=== PATIENT | female | born 1950 | race Caucasian/White ===

== ENCOUNTER → 2017-06-22 | Outpatient (CLI) | payer MEDICARE, OTHER, SELFPAY | PROVIDERS: Visit Provider Physician Assistant | DX: E78.4 Other hyperlipidemia (principal); Z13.0 Encounter for screening for diseases of the blood and blood-forming organs and certain disorders involving the immune mechanism; Z13.21 Encounter for screening for nutritional disorder; Z13.29 Encounter for screening for other suspected endocrine disorder | CPT/HCPCS: 80053; 80061; 82607; 82746; 84439; 84443; 85025 ==

== ENCOUNTER 2017-07-13 10:33 | Emergency (ER) | payer MEDICARE, OTHER, SELFPAY ==
[2017-07-13 10:33] VITALS: BP 156/71; PULSE 69; RESP 20; TEMP 36.8; O2SAT 97; BMI 31.3
--- NOTE | 2017-07-13 11:01 | XR_ITS ---
XR chest portable HISTORY: ITS.REASON: anxiety with brief SOB ORDERING PHYSICIAN: Ilana Tarango MD PATIENT AGE: 66 years COMPARISON: [id number] FINDINGS: The cardiomediastinal silhouette and pulmonary vascularity are within normal limits. The lungs are clear without infiltrates, suspicious nodules, or pleural effusions. No acute bony abnormalities. IMPRESSION: Negative chest, no acute finding
--- NOTE | 2017-07-13 11:02 | HMH.EDGENADL ---
ED Disposition Clinical Impression: Anxiety Disposition: Home, Self-Care Condition on Discharge: Good Instructions: DI for Anxiety -- Adult Additional Instructions: Continue Vistaril as already prescribed; Continue Wellbutrin as just initiated and see Alessandra in one to three days for reassessment and further recommendations. Referrals: Alessandra Hernandez PA [Primary Care Provider] - - Critical Care Critical Care Time: No Attestation: On , the high probability of a clinically significant, sudden or life threatening deterioration of the following system(s) required my full and direct attention, intervention and personal management. The time I documented below is in addition to time spent performing reported procedures but includes the following listed in this critical care notation. Medical Decision Making Vital Signs: 07/13/17 10:33 07/13/17 12:01 Temperature 98.3 F Temperature Source Oral Pulse Rate [Right Brachial] 69 77 Respiratory Rate 20 18 Blood Pressure [Right Arm] 156/71 118/49 Blood Pressure Mean [Right Arm] 99 72 Blood Pressure Source [Right Arm] Automatic Cuff Automatic Cuff Blood Pressure Position [Right Arm] Sitting Sitting 02 Sat by Pulse Oximetry 97 97 Oxygen Delivery Method Room Air Room Air - Lab Data Lab Results 07/13/17 11:15: Urine Color Straw, Urine Appearance Clear, Urine pH 6.5, Ur Specific [place] <= 1.005, Urine Protein Negative, Urine Glucose (UA) Negative, Urine Ketones Negative, Urine Blood 1+, Urine Nitrate Negative, Urine Bilirubin Negative, Urine Urobilinogen 0.2, Ur Leukocyte Esterase 2+ A, Urine RBC 5-10, Urine WBC 10-20, Ur Squamous Epith Cells 5-10, Ur Renal Epithelial Cell 3-5, Urine Bacteria 1+ 07/13/17 : Troponin I < 0.02 Orders (Tests/Meds): ORDERS Category Date Time Status Urine Culture Stat Micro 07/13/17 11:15 Received - Radiology Data #1 Image(s): Chest Image Reviewed: Yes I reviewed the patient's radiology results, Yes I have reviewed radiologist's interpretation Preliminary Findings: Normal/NAD - ECG Data Tracing #1 I reviewed this ECG and interpreted as documented below: ECG initial impression date: 07/13/17 ECG initial impression time: 10:40 ECG normal with no acute: arrhythmias, ischemia, conduction abnormalities, chamber hypertrophy - Woodrow Inquiry Pt receiving controlled substance: No General Adult HPI - General Chief complaint: Dizziness Stated complaint: dizziness Time Seen by Provider: 07/13/17 10:40 Mode of Arrival: EMS Limitations: No Limitations Description of Symptoms (Recalled from ER Triage Doc. by RN): Pt reports increased dizziness and SOA today. - History of Present Illness HPI narrative: Patient has a history of chronic dizziness, for which she has been extensively evaluated in [facility], including head CT. Also has a history of EVENS, and is newly on Wellbutrin ?6 days, after seeing her PCP Alessandra and Dr. Larios's office last week. Had an episode of anxiety this morning where she felt short of breath, and was having some tingling to her face and hands as well as feet. This was self resolving. She did take some Vistaril early this morning. He has been on multiple medications in the past for this issue, including Paxil in the past, also reports that she has been seen by Dr. Duckworth in [facility] for a leaky heart valve . She states that I live on meclizine , for her dizziness. She is insistent that she does not have vertigo, however. She states that she has had some indigestion since last week. She has a vaginal yeast infection currently. States my urine stinks . No Fever or vomiting. No flu symptoms. Severity: similar to prior episodes - Related Data Home Medications Medication Instructions Recorded Confirmed aspirin 81 mg tablet,delayed 81 mg PO QDAY 07/07/17 07/13/17 release atorvastatin 10 mg tablet 10 mg PO QDAY 07/07/17 07/13/17 meclizine 25 mg tablet 25 mg PO TID tab 01
--- NOTE | 2017-07-13 11:06 | ED_ITS ---
ED Disposition Clinical Impression: Anxiety Disposition: Home, Self-Care Condition on Discharge: Good Instructions: DI for Anxiety -- Adult Additional Instructions: Continue Vistaril as already prescribed; Continue Wellbutrin as just initiated and see Alessandra in one to three days for reassessment and further recommendations. Referrals: Alessandra Hernandez PA [Primary Care Provider] - - Critical Care Critical Care Time: No Attestation: On , the high probability of a clinically significant, sudden or life threatening deterioration of the following system(s) required my full and direct attention, intervention and personal management. The time I documented below is in addition to time spent performing reported procedures but includes the following listed in this critical care notation. Medical Decision Making Vital Signs: 07/13/17 10:33 07/13/17 12:01 Temperature 98.3 F Temperature Source Oral Pulse Rate [Right Brachial] 69 77 Respiratory Rate 20 18 Blood Pressure [Right Arm] 156/71 118/49 Blood Pressure Mean [Right Arm] 99 72 Blood Pressure Source [Right Arm] Automatic Cuff Automatic Cuff Blood Pressure Position [Right Arm] Sitting Sitting 02 Sat by Pulse Oximetry 97 97 Oxygen Delivery Method Room Air Room Air - Lab Data Lab Results 07/13/17 11:15: Urine Color Straw, Urine Appearance Clear, Urine pH 6.5, Ur Specific [place] <= 1.005, Urine Protein Negative, Urine Glucose (UA) Negative, Urine Ketones Negative, Urine Blood 1+, Urine Nitrate Negative, Urine Bilirubin Negative, Urine Urobilinogen 0.2, Ur Leukocyte Esterase 2+ A, Urine RBC 5-10, Urine WBC 10-20, Ur Squamous Epith Cells 5-10, Ur Renal Epithelial Cell 3-5, Urine Bacteria 1+ 07/13/17 : Troponin I < 0.02 Orders (Tests/Meds): ORDERS Category Date Time Status Urine Culture Stat Micro 07/13/17 11:15 Received - Radiology Data #1 Image(s): Chest Image Reviewed: Yes I reviewed the patient's radiology results, Yes I have reviewed radiologist's interpretation Preliminary Findings: Normal/NAD - ECG Data Tracing #1 I reviewed this ECG and interpreted as documented below: ECG initial impression date: 07/13/17 ECG initial impression time: 10:40 ECG normal with no acute: arrhythmias, ischemia, conduction abnormalities, chamber hypertrophy - Woodrow Inquiry Pt receiving controlled substance: No General Adult HPI - General Chief complaint: Dizziness Stated complaint: dizziness Time Seen by Provider: 07/13/17 10:40 Mode of Arrival: EMS Limitations: No Limitations Description of Symptoms (Recalled from ER Triage Doc. by RN): Pt reports increased dizziness and SOA today. - History of Present Illness HPI narrative: Patient has a history of chronic dizziness, for which she has been extensively evaluated in [facility], including head CT. Also has a history of EVENS, and is newly on Wellbutrin ?6 days, after seeing her PCP Alessandra and Dr. Lariso's office last week. Had an episode of anxiety this morning where she felt short of breath, and was having some tingling to her face and hands as well as feet. This was self resolving. She did take some Vistaril early this morning. He has been on multiple medications in the past for this issue, including Paxil in the past, also reports that she has been seen by Dr. Duckworth in [facility] for a leaky heart valve . She states that I live on meclizine , for her dizziness
[2017-07-13 11:30] LABS: Appearance,Urine CLEAR (Clear); Bilirubin,Urine Negative (Negative); Blood, Urine 1+ (Negative); Color,Urine STRAW (Yellow); Glucose,Urine (UA) Negative (Negative); Ketones,Urine Negative (Negative); Leukocyte Esterase,Urine 2+ (Negative); Microscopic, Urine URINE MICROSCOPIC (MICROSCOPIC); Nitrate,Urine Negative (Negative); PH,Urine 6.5 (5.0-8.5); Protein,Urine Negative (Negative); Specific Gravity, Urine <= 1.005 (1.005-1.030); Urobilinogen,Urine 0.2 EU/dl (0.2)
[2017-07-13 12:01] VITALS: BP 118/49; PULSE 77; RESP 18; O2SAT 97
[2017-07-13 12:02] LABS: Troponin I < 0.02 ng/ml (0.00-0.06)
[2017-07-13 12:17] LABS: Bacteria,Urine 1+ /lpf
[2017-07-13 13:29] VITALS: BP 156/66; PULSE 70; O2SAT 98
== END 2017-07-13 13:32 | disposition home or self-care (01) ==
PROVIDERS: Emergency Provider Emergency Medicine; Family Provider Nurse Practitioner Family; PCP Physician Assistant
DX: F41.9 Anxiety disorder, unspecified (principal); R42 Dizziness and giddiness; Z79.899 Other long term (current) drug therapy; E78.5 Hyperlipidemia, unspecified; F17.210 Nicotine dependence, cigarettes, uncomplicated
CPT/HCPCS: 71045; 81001; 84484; 87086; 93005; 99284

== ENCOUNTER → 2018-03-27 09:44 | Outpatient (REF) | payer MEDICARE, OTHER, SELFPAY ==
[2018-03-27 15:33] LABS: Amphetamine/Metha Screen,Urine Negative ng/mL (<1000); Barbiturates Screen,Urine Negative ng/mL (<200); Benzodiazepines Screen,Urine Negative ng/mL (<200); Cannabinoid Screen,Urine Negative ng/mL (<50); Cocaine Screen,Urine Negative ng/mL (<300); Methadone Screen,Urine Negative ng/mL (<300); Opiate Screen,Urine Negative ng/mL (<300); Phencyclidine Screen,Urine Negative ng/mL (<25)
[2018-04-02 16:08] LABS: Alprazolam Negative (Cutoff=100); Benzodiazepines Negative ng/mL (Cutoff=100); Clonazepam Negative (Cutoff=100); Flurazepam Negative (Cutoff=100); Lorazepam Negative (Cutoff=100); Midazolam Negative (Cutoff=100); Temazepam Negative (Cutoff=100); Triazolam Negative (Cutoff=100)
== END ==
LOC: LAB 09:44
PROVIDERS: Visit Provider Emergency Medicine
DX: Z79.899 Other long term (current) drug therapy (principal)
CPT/HCPCS: 80305; 80346

== ENCOUNTER → 2018-06-23 14:20 | Outpatient (CLI) | payer MEDICARE, OTHER, SELFPAY ==
[2018-06-23 15:00] LABS: Basophils # 0.1 K/mm3 (0-0.2); Basophils % 0.7 % (0.1-2.0); Eosinophils # 0.2 K/mm3 (0.0-0.4); Eosinophils % 2.6 % (0.1-12.0); Hematocrit 49.7 % (37.0-47.0); Hemoglobin 16.3 g/dL (12.2-16.2); Lymphocytes # 1.8 K/mm3 (0.7-4.5); Lymphocytes % 25.6 % (10-50); Mean Corpuscular HGB Conc 32.7 g/dL (31.8-35.4); Mean Corpuscular Hemoglobin 31.2 pg (27.0-31.2); Mean Corpuscular Volume 95.3 fl (81-99); Mean Platelet Volume 8.2 fl (7.4-10.4); Monocytes # 0.4 K/mm3 (0.1-1.0); Monocytes % 6.2 % (1.7-9.3); Neutrophils # 4.4 K/mm3 (1.8-7.8); Neutrophils % 64.9 % (37.0-80.0); Platelet Count 237 K/mm3 (142-424); Red Blood Count 5.21 M/mm3 (4.20-5.40); Red Cell Distribution Width 13.4 % (11.5-17.5); White Blood Count 6.8 K/mm3 (4.8-10.8)
[2018-06-23 16:28] LABS: Alanine Aminotransferase 24 U/L (12-78); Albumin Level 3.6 gm/dL (3.4-5.0); Albumin/Globulin Ratio 1.1 (1.1-1.8); Alkaline Phosphatase 173 U/L (46-116); Anion Gap 15.7 mEq/L (5-15); Aspartate Amino Transferase 12 U/L (15-37); Bilirubin,Total 0.7 mg/dL (0.2-1.0); Blood Urea Nitrogen 14 mg/dL (7-18); Carbon Dioxide 25 mmol/L (21.0-32.0); Chloride 106 mmol/L (98-107); Chol/HDL Ratio 3.1 (1-3.5); Cholesterol 177 mg/dL (140-200); Estimated Glomerular Filt Rate 55 ml/min (>60); Free T4 (Free Thyroxine) 1.05 ng/dl (0.76-1.46); GFR (African American) 67 ML/MIN (>60); Globulin 3.3 gm/dl (1.3-3.2); Glucose 98 mg/dL (74-106); HDL Cholesterol 57 mg/dL (29-89); LDL Cholesterol 105 mg/dL (0-130); Potassium 4.7 mmoL/L (3.5-5.1); Sodium 142 mmol/L (136-145); Thyroid Stimulating Hormone 1.31 uIU/ml (0.358-3.740); Total Protein,Serum 6.9 gm/dL (6.4-8.2); Triglycerides 76 mg/dL (30-200); VLDL Cholesterol 15 mg/dL (0-40)
[2018-06-26 14:11] LABS: Vitamin D 25 Hydroxy 27.1 ng/mL (30.0-100.0)
== END ==
PROVIDERS: Visit Provider Emergency Medicine
DX: R53.83 Other fatigue (principal); Z79.899 Other long term (current) drug therapy
CPT/HCPCS: 80053; 80061; 82652; 84439; 84443; 85025

== ENCOUNTER → 2018-09-20 14:03 | Outpatient (CLI) | payer MEDICARE, OTHER, SELFPAY ==
[2018-09-20 15:19] LABS: Amphetamine/Metha Screen,Urine Negative ng/mL (<1000); Barbiturates Screen,Urine Negative ng/mL (<200); Benzodiazepines Screen,Urine Negative ng/mL (<200); Cannabinoid Screen,Urine Negative ng/mL (<50); Cocaine Screen,Urine Negative ng/mL (<300); Methadone Screen,Urine Negative ng/mL (<300); Opiate Screen,Urine Negative ng/mL (<300); Phencyclidine Screen,Urine Negative ng/mL (<25)
[2018-09-27 11:06] LABS: Alprazolam Negative; Benzodiazepines Positive; Flurazepam Negative; Lorazepam Negative
[2018-09-27 11:07] LABS: Clonazepam Positive; Midazolam Negative; Temazepam Negative; Triazolam Negative
== END ==
PROVIDERS: Visit Provider Emergency Medicine
DX: Z79.899 Other long term (current) drug therapy (principal)
CPT/HCPCS: 80305; 80346

== ENCOUNTER → 2018-10-20 08:59 | Outpatient (CLI) | payer MEDICARE, OTHER, SELFPAY ==
--- NOTE | 2018-10-20 10:00 | MM_ITS ---
MM Dig screening mamm BI w/CAD CAD Screening COMPARISON: None, patient had previous mammograms in [place] but does not know where INDICATION: There is no personal or family history of breast cancer TECHNIQUE: Standard CC and MLO images were obtained. R2 CAD reviewed. FINDINGS: The breasts are composed primarily of fat with minimal fibroglandular densities in the central portions of each breast. There are couple benign-appearing calcifications right breast and there is a mole marker left breast. There are small benign-appearing asymmetric density upper outer quadrant right breast. However since are no previous studies for comparison recommend patient return for 6 month follow-up mammogram right breast to evaluate for interval stability. There are no suspicious microcalcifications. IMPRESSION: Fibrofatty parenchyma with small benign-appearing asymmetric density right breast BI-RADS Category: 3 Probably Benign Finding Short Term Follow-up RECOMMENDED FOLLOW-UP: 6M - 6 MONTH FOLLOW-UP (A letter has been sent to the patient regarding results of the study.)
== END ==
PROVIDERS: PCP Emergency Medicine; Visit Provider Emergency Medicine
DX: Z12.31 Encounter for screening mammogram for malignant neoplasm of breast (principal)
CPT/HCPCS: 77067

== ENCOUNTER 2019-01-02 11:00 | Outpatient (RCR) | payer MEDICARE, OTHER, SELFPAY ==
--- NOTE | 2018-12-28 10:45 | HMH.PTOPEV ---
PT Outpatient Evaluation Rehab PT Outpatient Evaluation Start: 12/28/18 10:22 Freq: Status: Active Protocol: Document 12/28/18 10:26 RISA (Rec: 12/28/18 10:44 RISA [id number]) Electronically Signed By Sameer Dickson, PT 12/28/18 10:26 Outpatient Therapy Subjective History Subjective History This is the initial Physical therapy evaluation for Perla Medrano. Pt is a 68 y/o female referred to PT for c/o B knee/ quad tendon pain. Pt reports ~ 3 weeks ago she was at a friend's house and went down ~ 13-14 steps and her knees were cracking and popping . Pt reports she began having pain in L knee that day and her R knee a few days later. Pt reports pain in quad tendon upon rising from seated position. Pt also reports pain goes away after a few steps. Pt reports pain w/ ascending/descending stairs Chief Complaint Pain,Stiff Symptom Type Sharp Symptoms Relieved By Rest/Positioning,Ice Symptoms Aggravated By Standing Prior Functional Limitations None Current Functional Limitations Standing,Squatting,Stairs Symptom Description Intermittent Level of pain today (0-10) 0 Pain scale - at its best (0-10) 0 Pain scale - at its worst (0-10) 9 Hip/Knee Eval Gait Observation General Gait Pattern Observation No Deviations/Normal Assistive Device Assistive Devices None / NA Palpation Tenderness bilateral Knee Palpation Finding Tenderness Knee Palpation Overall Comment TTP at B quad tendon MMT Hip Abduction Strength Grade 4- Good- Hip External Rotation Strength Grade 4- Good- Hip Internal Rotation Strength Grade 4 Good Knee Extension Strength Grade 4- Good- Knee Flexion Strength Grade 4 Good ROM Hip ROM Reason Not Measured Within Functional Limits Knee ROM Reason Not Measured Within Functional Limits Special Tests Knee Apprehension Test Negative Left,Negative Right Knee Apley Compression Test Negative Left,Negative Right Knee Anterior Drawer Test Negative Left,Negative Right Knee Medial-Lateral Grind Test Negative Left,Negative Right Knee Anterior Nisa Test Negative Left,Negative Right Knee Valgus Stress Test Negative Left,Negative Right Knee Varus Stress Test Negative Left,Negative Right Knee Claudio Test Negative Left,Negative Right Outpatie
== END 2019-01-22 08:00 | disposition home or self-care (01) ==
LOC: PT.CARL 11:00
PROVIDERS: Visit Provider Emergency Medicine
DX: M25.562 Pain in left knee (principal); M25.561 Pain in right knee
CPT/HCPCS: 97110; 97163

== ENCOUNTER → 2021-08-10 10:45 | Outpatient (CLI) | payer MEDICARE, OTHER, SELFPAY ==
[2021-08-10 13:56] LABS: Ferritin 137 ng/ml (11.1-264)
== END ==
PROVIDERS: PCP Nurse Practitioner; Visit Provider Specialist
DX: R19.5 Other fecal abnormalities (principal)
CPT/HCPCS: 36415; 82728

== ENCOUNTER → 2021-08-14 07:55 | Outpatient (CLI) | payer MEDICARE, OTHER, SELFPAY ==
[2021-08-14 08:45] VITALS: PULSE 78; PULSE 79
== END ==
PROVIDERS: PCP Nurse Practitioner; Visit Provider Specialist
DX: R06.02 Shortness of breath (principal); Z72.0 Tobacco use
CPT/HCPCS: 94060; 94618; 94640; 94727; 94729; 94762

== ENCOUNTER → 2021-08-28 11:05 | Outpatient (CLI) | payer MEDICARE, OTHER, SELFPAY ==
--- NOTE | 2021-08-28 11:06 | MR_ITS ---
FINAL REPORT CLINICAL HISTORY: dizziness, imbalance, disequilibrium FINDINGS: Multi planar MR imaging was obtained through the brain without contrast. The midline structures appear intact. There is no evidence of Chiari malformation. On T2 and flair axial images there are tiny scattered foci of abnormal signal in the deep white matter which are nonspecific and favored to be related to chronic microvascular ischemia. On diffusion-weighted images there is no evidence of restricted diffusion. The visualized paranasal sinuses demonstrate normal signal voids. The seventh and eighth nerve root complexes are intact. IMPRESSION: Some minimal changes of chronic microvascular ischemia. Reviewed, Interpreted and Dictated by Blayne Rico MD Transcribed by Afshan Crabtree Authenticated by Blayne Rico MD on 08/28/2021 01:35:07 [facility]
== END ==
PROVIDERS: PCP Nurse Practitioner; Visit Provider Specialist
DX: G25.9 Extrapyramidal and movement disorder, unspecified (principal); R42 Dizziness and giddiness
CPT/HCPCS: 70551

== ENCOUNTER → 2022-03-17 12:50 | Outpatient (CLI) | payer MEDICARE, OTHER, SELFPAY ==
--- NOTE | 2022-03-17 13:02 | ECG_ITS ---
APPROVED REPORT Exam: Resting ECG HR:63 bpm ECG Measurements Heart Rate 63 AXES VA 143 P 22 QRSd 92 QRS 42 QT 387 T 49 QTc 395 Conclusion SINUS RHYTHM NORMAL ECG UNCONFIRMED REPORT Electronically signed by : Waldo Dangelo MD 03/17/2022 17:36:27
== END ==
PROVIDERS: PCP Nurse Practitioner; Visit Provider Specialist
DX: R42 Dizziness and giddiness (principal)
CPT/HCPCS: 93005

== ENCOUNTER → 2022-07-16 13:51 | Outpatient (CLI) | payer MEDICARE, OTHER, SELFPAY ==
--- NOTE | 2022-07-16 13:59 | US_ITS ---
FINAL REPORT TECHNIQUE: Ultrasound images of the thyroid were obtained. CLINICAL HISTORY: SINGLE THYROID NODULE FINDINGS: The right lobe of the thyroid measures 5 x 1 x 2 cm. The left lobe of the thyroid measures 4 x 1 x 1 cm. Isthmus measures 0.26 cm. Two nodules are seen in the right lobe 1 measuring 4 x 4 x 2 cm which is solid and hypoechoic, TI-RADS category 4. The 2nd measures 5 x 4 x 2 cm, is cystic and TI-RADS category 1. There are 2 nodules in the left lobe of the thyroid. The 1st nodule measures 5 x 4 x 3 cm, is cystic and TI-RADS category 1. The 2nd nodule is 3 x 2 x 3 cm, is also cystic and TI-RADS category 1. IMPRESSION: Small, bilateral thyroid nodules. No additional follow-up needed. Reviewed, Interpreted and Dictated by Champ Arriola III, MD Transcribed by Juany Jackson Authenticated and . [facility]
== END ==
PROVIDERS: PCP Specialist; Visit Provider Nurse Practitioner
DX: E04.1 Nontoxic single thyroid nodule (principal)
CPT/HCPCS: 76536

== ENCOUNTER → 2022-08-31 13:19 | Outpatient (CLI) | payer MEDICARE, OTHER, SELFPAY ==
--- NOTE | 2022-08-31 13:26 | XR_ITS ---
FINAL REPORT CLINICAL HISTORY: Dyspnea COMPARISON: 07/13/2017 FINDINGS: PA and lateral views of the chest were obtained. The cardiac and mediastinal silhouettes are within normal limits. The lungs are hyperinflated and clear. There is no pleural effusion or pneumothorax. No acute osseous abnormality is identified. IMPRESSION: Hyperinflation with no radiographic evidence of acute cardiac or pulmonary disease. Reviewed, Interpreted and Dictated by Bri Owusu MD Transcribed by Juju Garsia Authenticated and [facility]
== END ==
PROVIDERS: PCP Nurse Practitioner; Visit Provider Specialist
DX: R06.00 Dyspnea, unspecified (principal); R06.89 Other abnormalities of breathing
CPT/HCPCS: 71046; 94762

== ENCOUNTER → 2022-09-02 13:03 | Outpatient (CLI) | payer MEDICARE, OTHER, SELFPAY | PROVIDERS: PCP Nurse Practitioner; Visit Provider Specialist | DX: R06.00 Dyspnea, unspecified (principal); R06.89 Other abnormalities of breathing; G25.9 Extrapyramidal and movement disorder, unspecified; F17.200 Nicotine dependence, unspecified, uncomplicated | CPT/HCPCS: 94060; 94640; 94726; 94729 ==

== ENCOUNTER → 2023-05-31 08:10 | Outpatient (CLI) | payer MEDICARE, OTHER, SELFPAY ==
[2023-05-31 13:37] LABS: Barbiturates Screen,Urine Negative ng/ml (<200); Benzodiazepines Screen,Urine Negative ng/ml (<200)
[2023-05-31 13:38] LABS: Amphetamine/Metha Screen,Urine Negative ng/ml (<1000); Methadone Screen,Urine Negative ng/ml (<300)
[2023-05-31 13:39] LABS: Cannabinoid Screen,Urine Negative ng/ml (<50)
[2023-05-31 13:40] LABS: Cocaine Screen,Urine Negative ng/ml (<300); Opiate Screen,Urine Negative ng/ml (<300)
[2023-05-31 13:41] LABS: Phencyclidine Screen,Urine Negative ng/ml (<25)
== END ==
PROVIDERS: PCP Physician Assistant; Visit Provider Nurse Practitioner Psychiatric/Mental Health
DX: Z79.899 Other long term (current) drug therapy (principal); Z51.81 Encounter for therapeutic drug level monitoring
CPT/HCPCS: 80305

== ENCOUNTER 2023-12-12 10:32 | Outpatient (CLI) | payer MEDICARE, OTHER, SELFPAY ==
[2023-12-12 18:41] LABS: Basophils # 0.1 K/mm3 (0-0.2); Basophils % 0.9 % (0.1-2.0); Eosinophils # 0.3 K/mm3 (0.0-0.4); Hematocrit 47.4 % (37.0-47.0); Hemoglobin 14.9 g/dL (12.2-16.2); Lymphocytes # 2.1 K/mm3 (0.7-4.5); Lymphocytes % 24.7 % (10-50); Mean Corpuscular HGB Conc 31.4 g/dL (31.8-35.4); Mean Corpuscular Hemoglobin 30.6 pg (27.0-31.2); Mean Corpuscular Volume 97.4 fl (81-99); Mean Platelet Volume 9.1 fl (7.4-10.4); Monocytes # 0.5 K/mm3 (0.1-1.0); Monocytes % 6.2 % (1.7-9.3); Neutrophils # 5.6 K/mm3 (1.8-7.8); Neutrophils % 65.1 % (37.0-80.0); Platelet Count 193 K/mm3 (142-424); Red Blood Count 4.86 M/mm3 (4.20-5.40); Red Cell Distribution Width 14.4 % (11.5-17.5); White Blood Count 8.6 K/mm3 (4.8-10.8)
[2023-12-12 19:12] LABS: Alanine Aminotransferase 17 U/L (12-78); Albumin Level 3.7 g/dl (3.5-5.0); Albumin/Globulin Ratio 1.5 (1.1-1.8); Alkaline Phosphatase 144 U/L (38-126); Anion Gap 14.5 mEq/L (5-15); Aspartate Amino Transferase 22 U/L (14-36); Bilirubin,Total 0.7 mg/dl (0.2-1.3); Blood Urea Nitrogen 20 mg/dl (7-17); Calcium 9.4 mg/dl (8.4-10.2); Carbon Dioxide 24 mmol/L (22.0-30.0); Chloride 107 mmol/L (98-107); Chol/HDL Ratio 3.2 (1-3.5); Cholesterol 181 mg/dl (140-200); Estimated Glomerular Filt Rate 40 ml/min (>60); GFR (African American) 49 ML/MIN (>60); Globulin 2.5 g/dL (1.3-3.2); Glucose 91 mg/dl (74-100); HDL Cholesterol 57 mg/dl (40-60); Potassium 4.5 mmoL/L (3.5-5.1); Sodium 141 mmol/L (136-145); Total Protein,Serum 6.2 g/dl (6.3-8.2); Triglycerides 76 mg/dl (30-150); VLDL Cholesterol 15 mg/dL (0-40)
[2023-12-12 19:23] LABS: Direct LDL Cholesterol 98.52 mg/dL (100-129)
[2023-12-12 19:29] LABS: 25-OH Vitamin D, Total 26.5 ng/mL (30-100)
[2023-12-12 19:41] LABS: Hemoglobin A1C 5.3 % (4.0-6.0)
[2023-12-12 19:43] LABS: Thyroid Stimulating Hormone 1.17 uIU/mL (0.465-4.68)
== END 2023-12-12 23:59 | disposition home or self-care (01) ==
LOC: LAB.DROPOF 12-13 10:34
PROVIDERS: PCP Physician Assistant; Visit Provider Physician Assistant
DX: E55.9 Vitamin D deficiency, unspecified (principal); E66.9 Obesity, unspecified; E78.5 Hyperlipidemia, unspecified; R53.83 Other fatigue; R73.03 Prediabetes; Z68.31 Body mass index [BMI] 31.0-31.9, adult
CPT/HCPCS: 80053; 80061; 82306; 83036; 84443; 85025

== ENCOUNTER 2024-01-10 15:10 | Outpatient (CLI) | payer MEDICARE, OTHER, SELFPAY ==
[2024-01-10 15:58] LABS: Basophils # 0.1 K/mm3 (0-0.2); Basophils % 0.9 % (0.1-2.0); Eosinophils # 0.3 K/mm3 (0.0-0.4); Eosinophils % 3.4 % (0.1-12.0); Hematocrit 44.2 % (37.0-47.0); Hemoglobin 14.6 g/dL (12.2-16.2); Lymphocytes # 2.7 K/mm3 (0.7-4.5); Lymphocytes % 31.1 % (10-50); Mean Corpuscular HGB Conc 33.1 g/dL (31.8-35.4); Mean Corpuscular Hemoglobin 31.8 pg (27.0-31.2); Mean Platelet Volume 8.6 fl (7.4-10.4); Monocytes # 0.5 K/mm3 (0.1-1.0); Neutrophils # 5.2 K/mm3 (1.8-7.8); Neutrophils % 58.5 % (37.0-80.0); Platelet Count 240 K/mm3 (142-424); Red Cell Distribution Width 14.3 % (11.5-17.5); White Blood Count 8.8 K/mm3 (4.8-10.8)
[2024-01-10 16:10] LABS: Chloride 110 mmol/L (98-107); Potassium 4.7 mmoL/L (3.5-5.1); Sodium 140 mmol/L (136-145)
[2024-01-10 16:12] LABS: Alanine Aminotransferase 17 U/L (12-78); Albumin Level 3.8 g/dl (3.5-5.0); Albumin/Globulin Ratio 1.6 (1.1-1.8); Alkaline Phosphatase 127 U/L (38-126); Anion Gap 10.7 mEq/L (5-15); Aspartate Amino Transferase 24 U/L (14-36); Bilirubin,Total 0.7 mg/dl (0.2-1.3); Blood Urea Nitrogen 25 mg/dl (7-17); Carbon Dioxide 24 mmol/L (22.0-30.0); Estimated Glomerular Filt Rate 37 ml/min (>60); GFR (African American) 45 ML/MIN (>60); Globulin 2.4 g/dL (1.3-3.2); Total Protein,Serum 6.2 g/dl (6.3-8.2)
[2024-01-10 16:13] LABS: Calcium 9.5 mg/dl (8.4-10.2); Cholesterol 197 mg/dl (140-200); Glucose 95 mg/dl (74-100); HDL Cholesterol 65 mg/dl (40-60); Triglycerides 75 mg/dl (30-150); VLDL Cholesterol 15 mg/dL (0-40)
[2024-01-10 16:24] LABS: Direct LDL Cholesterol 96.71 mg/dL (100-129)
[2024-01-10 16:42] LABS: Thyroid Stimulating Hormone 1.16 uIU/mL (0.465-4.68)
[2024-01-10 18:35] LABS: Vitamin B12 579 pg/mL (239-931)
== END 2024-01-10 23:59 | disposition home or self-care (01) ==
LOC: LAB 15:13
PROVIDERS: PCP Physician Assistant; Visit Provider Physician Assistant
DX: R53.83 Other fatigue (principal); E78.5 Hyperlipidemia, unspecified; T43.505A Adverse effect of unspecified antipsychotics and neuroleptics, initial encounter; G24.01 Drug induced subacute dyskinesia; G25.9 Extrapyramidal and movement disorder, unspecified; Z68.31 Body mass index [BMI] 31.0-31.9, adult; E66.9 Obesity, unspecified
CPT/HCPCS: 80053; 80061; 82607; 84443; 85025

== ENCOUNTER 2024-04-16 08:39 | Outpatient (CLI) | payer MEDICARE, OTHER, SELFPAY ==
[2024-04-16 09:29] LABS: Basophils # 0.1 K/mm3 (0-0.2); Basophils % 0.9 % (0.1-2.0); Eosinophils # 0.3 K/mm3 (0.0-0.4); Hemoglobin 14.7 g/dL (12.2-16.2); Lymphocytes # 2.2 K/mm3 (0.7-4.5); Lymphocytes % 23.4 % (10-50); Mean Corpuscular HGB Conc 33.5 g/dL (31.8-35.4); Mean Corpuscular Hemoglobin 31.4 pg (27.0-31.2); Mean Corpuscular Volume 93.7 fl (81-99); Monocytes # 0.8 K/mm3 (0.1-1.0); Monocytes % 8.1 % (1.7-9.3); Neutrophils % 64.6 % (37.0-80.0); Platelet Count 218 K/mm3 (142-424); Red Cell Distribution Width 13.7 % (11.5-17.5); White Blood Count 9.3 K/mm3 (4.8-10.8)
[2024-04-16 09:45] LABS: Albumin Level 3.7 g/dl (3.5-5.0); Chloride 110 mmol/L (98-107); Sodium 139 mmol/L (136-145)
[2024-04-16 09:46] LABS: Potassium 4.2 mmoL/L (3.5-5.1)
[2024-04-16 09:48] LABS: Alanine Aminotransferase 21 U/L (12-78); Albumin/Globulin Ratio 1.7 (1.1-1.8); Alkaline Phosphatase 124 U/L (38-126); Anion Gap 6.2 mEq/L (5-15); Aspartate Amino Transferase 26 U/L (14-36); Bilirubin,Total 0.8 mg/dl (0.2-1.3); Blood Urea Nitrogen 19 mg/dl (7-17); Calcium 9.6 mg/dl (8.4-10.2); Carbon Dioxide 27 mmol/L (22.0-30.0); Cholesterol 179 mg/dl (140-200); Estimated Glomerular Filt Rate 44 ml/min (>60); GFR (African American) 53 ML/MIN (>60); Globulin 2.2 g/dL (1.3-3.2); Glucose 98 mg/dl (74-100); Total Protein,Serum 5.9 g/dl (6.3-8.2); Triglycerides 108 mg/dl (30-150); VLDL Cholesterol 22 mg/dL (0-40)
[2024-04-16 09:49] LABS: Chol/HDL Ratio 3.7 (1-3.5); HDL Cholesterol 49 mg/dl (40-60)
[2024-04-16 10:00] LABS: Direct LDL Cholesterol 91.77 mg/dL (100-129)
== END 2024-04-16 23:59 | disposition home or self-care (01) ==
LOC: LAB 08:41
PROVIDERS: PCP Physician Assistant; Visit Provider Nurse Practitioner Family
DX: I25.10 Atherosclerotic heart disease of native coronary artery without angina pectoris (principal); I10 Essential (primary) hypertension
CPT/HCPCS: 36415; 80053; 80061; 83735; 85025

== ENCOUNTER 2024-07-05 11:55 | Outpatient (CLI) | payer MEDICARE, OTHER, SELFPAY ==
--- NOTE | 2024-07-05 11:57 | CT_ITS ---
FINAL REPORT TECHNIQUE: Thin section axial images were obtained through the lungs using a low-dose technique per lung cancer screening protocol. Reconstruction images were obtained using the axial data. Exam was performed using dose reduction technique. CLINICAL HISTORY: lung cancer screening CURRENT SMOKER, 1 PPD X 15 YEARS COMPARISON: None FINDINGS: CTDLvol: 2.9 DLP: 105.25 73-year-old female, current smoker 15 pack year history Lungs: No acute pulmonary abnormality. There is asymmetric nodular pleural thickening present in the right apex. This is favored to represent scar, although with no prior examinations an underlying nodule is not entirely excluded. The lungs are otherwise clear. Lymph nodes: No thoracic lymphadenopathy. Mediastinum: Heart size is normal. Prominent coronary artery calcifications are present. Pleura/pericardium: No pleural or pericardial effusion. Other: There is a left renal lesion present, which is indeterminate. IMPRESSION: Asymmetric nodular pleural thickening in the right apex, favored to be scar but a nodule is not entirely excluded. Lung RADS: 0S, the S designation for prominent coronary artery calcifications. Recommendation: Follow-up 3 to 6-month CT to reevaluate the asymmetric nodular pleural thickening in the right apex. Reviewed, Interpreted and Dictated by Bri Owusu MD Transcribed by Rose Juarez Authenticated and [facility]
== END 2024-07-05 23:59 | disposition home or self-care (01) ==
LOC: RAD 11:57
PROVIDERS: PCP Internal Medicine; Visit Provider Internal Medicine
DX: F17.210 Nicotine dependence, cigarettes, uncomplicated (principal); Z12.2 Encounter for screening for malignant neoplasm of respiratory organs
CPT/HCPCS: 71271

== ENCOUNTER 2024-07-17 10:53 | Outpatient (RCR) | payer MEDICARE, OTHER, SELFPAY ==
--- NOTE | 2024-07-17 12:29 | HMH.PTOPEV ---
PT Outpatient Evaluation Rehab PT Outpatient Evaluation Start: 07/17/24 11:04 Freq: Status: Active Protocol: Document 07/17/24 11:05 ALEXANDRA (Rec: 07/17/24 12:28 PDESEROUX [id number]) E-signed By Terrance Jimenez, PT Outpatient Therapy Subjective History Subjective History Pt. is a 73 year old female who presents to [facility] Out[facility] in [place] for the initial evaluation this date(07/17/24) w/ c/o chronic and constant BLE/BUE(L>R) P!, weakness, and tremors since the summer that has progressively been getting worse. Pt. vocalized putting on 50# of body weight secondary to increased sedentary lifestyle. Pt. reports the added weight has increased popping and P! in the RLE when she moves it. Pt.'s c/o weakness, shaking of extremities, and P! onset in summer 2023 was secondary to taking an anti-depressant medication. Pt. reports some improvements symptom complaint since she was instructed per DM to discontinue medications. However, pt. vocalized worsening of activity level since onset. Pt. reports she has help from a family member she lives with to assist pt. w / standing from a chair or commode at home. Pt. also reports having assistance w/ negotiating their 13 steps at home. Pt. reports she is unable to stand long enough to fix supper, or dress herself, therefore, requires assistance w/ ADLs. Pt. reports she's had 5 falls since symptom onset in and outside of her home environment. Pt. RTMD 07/19/24 . Current medication list includes Clonidine, Lisinopril , and Atorvastatin. PMH includes Hypertension, Hyperlipidemia, and surgical procedure for skin cancer BLEs (unable to recall specific type of skin cancer). New diagnosis of cancer in past 12 Yes: Pt. reports having a months? surgical procedure to remove skin cancer BLEs in 2023. Chief Complaint Pain,Stiff,Swelling,Catches/ Locks,Gives out/Unstable, Paresthesia,Weakness,Decreased Coordination Symptom Type Ache,Throb,Sharp,Burning, Numbness,Tingling,Shooting Symptoms Relieved By Rest/Positioning,Prescription Meds Symptoms Aggravated By Standing,Bending/Stooping, Physical Activity,Walking, Lifting Prior Functional Limitations None Current Functional Limitations Lifting,Housework,Dressing, Standing,Squatting,Recreation Activity,Walking,Stairs, Bending/Stooping Symptom Description Constant and Continuous, Activity Dependent Level of pain today (0-10) 3 Pain scale - at its best (0-10) 2 Pain scale - at its worst (0-10) 7 Hip/Knee Eval Gait Observation General Gait Pattern Observation Antalgic Gait,Decrease Weight Bear (R),Decrease Stride Lngth (L) Assistive Device Assistive Devices None / NA Palpation Tenderness right Knee Palpation Finding Tenderness Knee Palpation Overall Comment grade 3 +TTP to medial/lateral jt. line and quadriceps tendon MMT left Hip Flexion Strength Grade 3+ Fair+ Hip Abduction Strength Grade 4- Good- Hip Adduction Strength Grade 4- Good- Hip Extension Strength Grade 4- Good- Gluteus Wally Strength Grade 4- Good- Hip External Rotation Strength Grade 4- Good- Hip Internal Rotation Strength Grade 4- Good- Knee Extension Strength Grade 4- Good- Knee Flexion Strength Grade 4- Good- Knee Extensors Muscle Tone Description Severe Hypertonicity Knee Flexors Muscle Tone Description Severe Hypertonicity right Hip Flexion Strength Grade 3 Fair Hip Abduction Strength Grade 3+ Fair+ Hip Adduction Strength Grade 3+ Fair+ Hip Extension Strength Grade 4- Good- Gluteus Wally Strength Grade 4- Good- Hip External Rotation Strength Grade 3+ Fair+ Hip Internal Rotation Strength Grade 3+ Fair+ Knee Extension Strength Grade 4- Good- Knee Flexion Strength Grade 4- Good- Knee Extensors Muscle Tone Description Severe Hypertonicity Knee Flexors Muscle Tone Description Severe Hypertonicity ROM Knee Extension Active Range of Motion ( +6 degrees) Knee Extension Passive Range of Motion ( +2 degrees) Knee Flexion Active Range of Motion ( 92 degrees) Knee Flexion Passive Range of Motion ( 101 degrees) Knee ROM Limitations Soft Tissue Tightness,Muscle Weakness,Muscle Tone,Pain DTR bilateral Rt Patellar 2+ Lt Patellar 2+ Rt Ankle 0 Lt Ankle 0 Sensation LE Dermatome Level L1,L2,L3,L4,L5,S1 Comment light touch sensation vocalized symmetrical in BLEs in above patterns Special Tests Knee Medial-Lateral Grind Test Positive Right Knee Valgus Stress Test Negative Right Knee Varus Stress Test Negative Right Knee Claudio Test Positive Right Outpatient Therapy Assessment Impairments Problems/Impairmments Palpation Tenderness,Impaired Range of Motion,Impaired Strength,Impaired Endurance, Impaired Transfers,Impaired Gait Pattern,Impaired Walking, Impaired Standing,Impaired Lifting,Impaired Dressing, Impaired Household Care, Impaired Stair Climbing, Increased Edema,Subjective C/O Pain,Impaired Self Care/Self Management Prognosis Rehab Potential Good Comment w/ HEP compliancy Clinical Impression Consistent with Diagnosis Yes Consistent with weakness of B/L lower extremities Additional details: symptoms and signs involving the musculoskeletal system Short Term Goals Number of Weeks 2 Decreased Palpation Tenderness Yes: grade 1-2 +TTP to TTP assessment above Decrease Subjective C/O Pain Yes: worse:11/10 Patient to be Ind w/ HEP Yes Assisted Goals Number of Weeks 4-6 Decreased Palpation Tenderness Yes: grade 1 +TTP to TTP assessment above Increase Range of Motion Yes: RLE knee A/PROM:0-120 Increase Strength Yes: 4+ to 5/5 BLE MMT scores grossly Improve Transfers Yes: Pt. will be able to stand from a seated position IND. SPV. Increase Ability to Walk Yes: Pt. will be able to ambulate SPV w/o AD from room to room w/o difficulty Increase Ability to Stand Yes: Pt. will be able to stand 5' SPV for improved ability to fix supper Increase Ability to Drive/Ride in Car Yes: Pt. will be able to transfer self IND. into/out vehicle w/o difficulty Improve Ability to Dress Self Yes: Pt. will be able to don socks and yoga pants IND. w/o difficulty Improve Ability to Climb Stairs Yes: Pt. will be able to negotiate stairs w/ handrail SPV. Improve LEFI Score Yes Decrease Subjective C/O Pain Yes: worse;2-09/10 Patient to be Ind w/ Advanced HEP Yes Outpatient Therapy Plan of Care Treatment Plan May Include Therapeutic Exercise Including Home Yes Exercise Program Manual Therapy Techniques Yes Neuromuscular Re-education Yes Therapeutic Activities to Return to Yes Previous Functional/Work Level Gait Training Yes ADL/Self Care Education Yes Vasopneumatic Compression Pump Yes Eval/Re-Eval Yes Frequency Times per week 2 Duration Number of Weeks 4-6 Addendums This patient is a candidate for social No or vocational rehab? Patient/Guardian verbally acknowledges Yes understanding of treatment program and consents to further treatment? Patient/Guardian verbally acknowledges Yes understanding of diagnosis, prognosis and goals for treatment? Eval Complexity PT Charges 69178 - Moderate Complexity Shoulder/Elbow Eval Shoulder Objective Measurements Elbow Objective Measurements PHYSICIAN CERTIFICATION: I certify the specified therapy services for Perla Carolyn Marcela are required, authorized, and reviewed every 30 days.
== END 2024-07-17 23:59 | disposition home or self-care (01) ==
LOC: PT 10:53
PROVIDERS: Visit Provider Internal Medicine
DX: R53.1 Weakness (principal); R29.818 Other symptoms and signs involving the nervous system
CPT/HCPCS: 97110; 97163

== ENCOUNTER 2024-08-09 14:06 | Outpatient (CLI) | payer MEDICARE, OTHER, SELFPAY ==
--- NOTE | 2024-08-09 14:27 | MR_ITS ---
FINAL REPORT CLINICAL HISTORY: Tremors, tardive dyskinesia X 6 MONTHS BILATERAL HANDS AND LEFT LEG COMPARISON: 08/28/2021 FINDINGS: Multi planar MR imaging was obtained through the brain without contrast. There are a few small scattered foci of increased signal in the deep white matter, also seen on the prior MRI of 2021, and consistent with minimal changes of ischemic microvascular disease. The midline structures appear intact. There is no evidence of Chiari malformation. On T2 and flair axial images the brain parenchyma is homogeneous. On diffusion-weighted images there is no evidence of restricted diffusion. The visualized paranasal sinuses demonstrate normal signal voids. The seventh and eighth nerve root complexes are intact. IMPRESSION: Minimal changes of ischemia microvascular disease, stable since the prior MR of 2021, otherwise unremarkable MRI of the head without contrast. Reviewed, Interpreted and Dictated by Blayne Rico MD Transcribed by Rose Juarez Authenticated and [facility] [place]
[2024-08-09 14:42] LABS: Blood Urea Nitrogen 17 mg/dl (7-17); Estimated Glomerular Filt Rate 54 ml/min (>60); GFR (African American) 66 ML/MIN (>60)
== END 2024-08-09 23:59 | disposition home or self-care (01) ==
LOC: RAD 14:07
PROVIDERS: PCP Internal Medicine; Visit Provider Internal Medicine
DX: G24.01 Drug induced subacute dyskinesia (principal)
CPT/HCPCS: 36415; 70551; 82565; 84520

== ENCOUNTER 2025-01-17 11:38 | Outpatient (CLI) | payer MEDICARE, OTHER, SELFPAY ==
--- OUTSIDE RECORDS SUMMARY | 2025-01-17 11:41 | XMS_ITS | Encounter Summary ---
Author Organization [employer] (formerly [employer] ([place], [place], [place], [place]) Address [address] [place] [address] Care Team Providers Care Trash Collector Supervisor Name Role Phone Unavailable Primary Care Provider Unavailabl e Encounter Details Date Type Department Care Team (Late st Contact Info) Description 07/16/2021 Transcribed Document [facility] [place] [address] [place] [address] ProviderMckenzie MD [address] [place] [address] Social History Tobacco Use Types Packs/Day Years Used Date Smoking Tobacco: Never Assessed Comments Unknown Sex and Gender Information Value Date Recorded Sex Assigned at Not on file Legal Sex Female 5:34 PM CDT Gender Identity Not on file Sexual Orientation Not on file documented as of this encounter Miscellaneous Notes * Cerner Conversion Note - Mckenzie Leija MD - 07/16/2021 3:22 PM DOWEL STICKER OPERATOR DATE OF SERVICE: 07/16/2021 LEFT HEART CATHETERIZATION REPORT INDICATION: Dyspnea equivalent angina anterior ischemia by Lexiscan Cardiolite perfusion study. ADDITIONAL REFERRING PHYSICIAN: [facility]. PROCEDURE: Standard left heart catheterization. TECHNIQUE: A 5/6-Tajik sheath was placed in the right radial artery. Reynaldo catheter was used for selective angiography of left and right coronary arteries and obtaining pressures in the left ventricle. Left ventriculogram was not performed. Following the diagnostic catheterization, the radial artery sheath was removed and the access site successfully compressed using a TR band. No complications. HEMODYNAMICS: Left ventricle 130/10 mmHg, aorta 130/70 mmHg. DIAGNOSES: 1. Mild coronary artery atherosclerosis. 2. Normal left ventricular filling pressure without gradient across the aortic valve. CORONARY ANATOMY: 1. Left main trunk: Short left main trunk. 2. LAD: Large caliber vessel, which gives rise to several small caliber diagonal branches before extending beyond the apex. Mild calcification present in the proximal LAD. Luminal irregularities present in the LAD and diagonal branches. 3. Circumflex artery: Large caliber vessel, which gives rise to a tiny high lateral branch, large caliber bifurcating lateral branch and a small caliber AV circumflex artery. Luminal irregularities present in the circumflex artery. 4. Right coronary artery: Dominant large caliber vessel, which gives rise to a small caliber posterior descending artery, small caliber posterolateral branch. Mild atherosclerosis present in the right coronary artery. Mild calcification present in the proximal right coronary artery. 5. Left ventricle: Normal left ventricular filling pressure without gradient across the aortic valve. IMPRESSION: Angiographically, the patient has mild coronary artery atherosclerosis. There is normal left ventricular filling pressure without gradient across the aortic valve. No indication for revascularization. RECOMMENDATIONS: Risk factor modification, medical management is recommended. /[id number] Vinny Srinivasan MD SSL/AQ / SSL / MODL /[id number] CC: [facility] Alexia Duckworth M.D. documented in this encounter Plan of Treatment Not on file documented as of this encounter Visit Diagnoses Not on filedocumented in this encounter
--- OUTSIDE RECORDS SUMMARY | 2025-01-17 11:41 | XMS_ITS | Clinical Summary ---
Author Organization Healthcare Address [address] [place] [address] Care Team Providers Care Lens Engraver Name Role Phone Unavailable Primary Care Provider Unavailabl e Encounters Date Type Department Care Team Description 11/01/[address] [facility] [address], [address] [place] [address] Neurology, Physician, from Last 3 Months Social History Tobacco Use Types Packs/Day Years Used Date Smoking Tobacco: Never Assessed Comments Unknown Sex and Gender Information Value Date Recorded Sex Assigned at Female 07/19/2022 10:53 AM EST Legal Sex Female 10:44 AM EST Gender Identity Female 07/19/2022 10:53 AM EST Sexual Orientation Not on file Plan of Treatment Upcoming Encounters Date Type Department Care Team (Late st Contact Info) Description 02/12/2025 1:00 PM EDT Consult [facility] [address], [address] [place] [address] Bony London MD [address] [place] [id number] Health Maintenance Due Date Last Done Comments [facility]-Bone Density Scan 1950 [facility]-Depression Screening 1950 [facility]-Hepatitis C Screening 1950 [facility]-Medicare Annual Wellness (AWV) 1950 [facility]-/Child/Adol SDOH Screenings 1950 [facility]- SDOH Screenings 1968 [facility]-Adult SDOH Screenings 1968 [facility]-DTaP,Tdap,and Td Vaccines (1 - Tdap) 1969 CT Colonography 10/27/1995 Colonoscopy 10/27/1995 FIT-DNA 10/27/1995 FIT 10/27/1995 FOBT 10/27/1995 Sigmoidoscopy 10/27/1995 [facility]-Colorectal Cancer Screening 10/27/1995 [facility]-Breast Cancer Screening 2000 [facility]-Zoster Vaccines (1 of 2) 2000 [id number] Vaccine (3 - season) 2024 06/19/2021, 09/11/2020 [facility]-Influenza Vaccine (#1) 03/04/202505/08, 04/20/2022, 06/01/2021, Additional history exists [facility]-RSV Vaccine: 60+ Years or (1 - 1-dose 75+ series) 2025 [facility]-Pneumococcal Vaccine: 50+ Years Completed 04/05/2017, 04/02/2016 HPV Vaccines Aged Out No longer eligi ble based on patient's age to complete this topic [facility]-HIB Vaccines Aged Out No longer e ligible based on patient's age to complete this topic [facility]-Hepatitis A Vaccines Aged Out No longer eligible based on patient's age to complete this topic [facility]-IPV Vaccines Aged Out No longer e ligible based on patient's age to complete this topic [facility]-Rotavirus Vaccines Aged Out No lo nger eligible based on patient's age to complete this topic Insurance MEDICARE
--- OUTSIDE RECORDS SUMMARY | 2025-01-17 11:41 | XMS_ITS | Referral Summary ---
Author Organization [employer] ([place], [place], [place], [place]) Address [address] [place] [address] Care Team Providers Care Aesthetics Instructor Name Role Phone Unavailable Primary Care Provider Unavailabl e Social History Tobacco Use Types Packs/Day Years Used Date Smoking Tobacco: Never Assessed Comments Unknown Sex and Gender Information Value Date Recorded Sex Assigned at Not on file Legal Sex Female 5:34 PM CDT Gender Identity Not on file Sexual Orientation Not on file Plan of Treatment Not on file
--- OUTSIDE RECORDS SUMMARY | 2025-01-17 11:41 | XMS_ITS | Clinical Summary ---
Author Organization [employer] ([place], [place], [place], [place]) Address [address] [place] [address] Care Team Providers Care Hospitalist Physician Name Role Phone Unavailable Primary Care Provider [...]
--- OUTSIDE RECORDS SUMMARY | 2025-01-17 11:41 | XMS_ITS | Encounter Summary ---
Author Organization Healthcare Address [address] [place] [address] Care Team Providers Care Student Services Representative Name Role Phone Unavailable Primary Care Provider Unavailabl e Encounter Details Date Type Department Care Team (Late st Contact Info) Description 07/19/2022 Community [facility] [address] [place] [address] Aniyah Hernandez, PARTS ADVISOR [address] [place] [address] Nontoxic single thyroid nodule (Primary Dx) Social History Tobacco Use Types Packs/Day Years Used Date Smoking Tobacco: Never Assessed Comments Unknown Sex and Gender Information Value Date Recorded Sex Assigned at Female 07/19/2022 10:53 AM EST Legal Sex Female 10:44 AM EST Gender Identity Female 07/19/2022 10:53 AM EST Sexual Orientation Not on file documented as of this encounter Plan of Treatment Upcoming Encounters Date Type Department Care Team (Late st Contact Info) Description 02/12/2025 1:00 PM EDT [facility] [address], [address] [place] [address] Bony London MD [address] [place] [address] documented as of this encounter Visit Diagnoses Diagnosis Nontoxic single thyroid nodule- Primary Nontoxic uninodular goiter documented in this encounter
--- OUTSIDE RECORDS SUMMARY | 2025-01-17 11:41 | XMS_ITS | Encounter Summary ---
Author Organization [employer] ([place], [place], [place], [place]) Address [address] [place] [address] Care Team Providers Care Traffic Chief Name Role Phone Unavailable Primary Care Provider Unavailabl e Encounter Details Date Type Department Care Team (Late st Contact Info) Description 07/16/2021 Transcribed Document [facility] [place] [facility] [place] [address] ProviderMckenzie MD [address] [place] [address] Social History Tobacco Use Types Packs/Day Years Used Date Smoking Tobacco: Never Assessed Comments Unknown Sex and Gender Information Value Date Recorded Sex Assigned at Not on file Legal Sex Female 5:34 PM CDT Gender Identity Not on file Sexual Orientation Not on file documented as of this encounter Miscellaneous Notes * Cerner Conversion Note - Mckenzie Leija MD - 07/16/2021 11:48 AM BILINGUAL TEACHER Patient: KAREN RAY Age: 70 years Sex: Female : 1950 Associated Diagnoses: None Author: CARLY SRINIVASAN MD-CAR Basic Information PCP: [facility] Elementary Art Teacher: Dr. Duckworth Chief Complaint Exertional Dyspnea, Abnormal Stress History of Present Illness 70 year old female with a hx. of HTN, HLD, Carotid Stenosis, and Tobacco Abuse. The patient reports progressive exertional dyspnea. She describes her breathing as tight . Recent Lexiscan suggest anterior ischemia. Dr. Dorinda Duckworth has referred her for further cardiac evaluation. Patient presents today for [facility] with Dr. Srinivasan. Review of Systems Constitutional: Negative except as documented in history of present illness. Eye: Negative except as documented in history of present illness. Ear/Nose/Mouth/Throat: Negative except as documented in history of present illness. Respiratory: Negative except as documented in history of present illness. Cardiovascular: Negative except as documented in history of present illness. Gastrointestinal: Negative except as documented in history of present illness. Genitourinary: Negative except as documented in history of present illness. Hematology/Lymphatics: Negative except as documented in history of present illness. Endocrine: Negative except as documented in history of present illness. Immunologic: Negative except as documented in history of present illness. Musculoskeletal: Negative except as documented in history of present illness. Integumentary: Negative except as documented in history of present illness. Neurologic: Negative except as documented in history of present illness. Psychiatric: Negative except as documented in history of present illness. Health Status No qualifying data available No qualifying data available Allergies: No active allergies have been recorded., No qualifying data available Current medications: No qualifying data available Problem list: No problem items selected or recorded., No qualifying data available Histories No education data available. Social & Psychosocial Habits No Data Available Past Medical History: Active HLD - Hyperlipidemia (459072115) HTN - Hypertension (9285957895) Tobacco abuse (093194177) PVD - peripheral vascular disease (1765193612) Family History: No family history items have been selected or recorded., Non-Contributory Procedure history: No active procedure history items have been selected or recorded. Social History Social & Psychosocial Habits No Data Available . Physical Examination VS/Measurements No qualifying data available General: Alert and oriented, No acute distress. Eye: Pupils are equal, round and reactive to light, Normal conjunctiva. HENT: Normocephalic. Neck: Supple, No jugular venous distention. Respiratory: Lungs are clear to auscultation, Respirations are non-labored, Symmetrical chest wall expansion. Cardiovascular: Normal rate, Regular rhythm, No murmur, Good pulses equal in all extremities. Gastrointestinal: Soft, Non-distended, Normal bowel sounds. Musculoskeletal: Normal range of motion, Normal strength. Integumentary: Warm, Dry, Blossom. Neurologic: Alert, Oriented. Psychiatric: Cooperative, Appropriate mood & affect. Review / Management Results review: No qualifying data available. Impression and Plan IMPRESSION: * Anginal Equivalent Exertional FC II Dyspnea Lexiscan Cardiolite suggest anterior ischemia, EF > 70% * HTN +BB, +LUDMILA * HLD LDL 111- Atorvastatin recently increased from 20 to 40 mg daily * Long Standing Tobacco Abuse PLAN; LHC +/- PCI via R radial artery approach with possible percutaneous coronary intervention. Risk and benefits discussed. Patient wishes to proceed. CV medication recommends pending cath findings. Emphasize smoking cessation. Target LDL < 100 mg/dL, BP log w/ target < 130/80 mmHg. Post Cath Addendum: Mild coronary artery atherosclerosis; no indication for revascularization. Continue current CV meds. RV with Dr. Dorinda Duckworth Electronically signed by [facility], [facility] Conversion Surgical Technologist Cerner at 10/18/2022 6:15 PM CDT documented in this encounter Plan of Treatment Not on file documented as of this encounter Visit Diagnoses Not on filedocumented in this encounter
--- OUTSIDE RECORDS SUMMARY | 2025-01-17 11:41 | XMS_ITS | Encounter Summary ---
Author Organization [employer] ([place], [place], [place], [place]) Address [address] [place] [address] Care Team Providers Care Manager Instrumentation Name Role Phone Unavailable Primary Care Provider Unavailabl e Encounter Details Date Type Department Care Team (Late st Contact Info) Description 07/16/2021 Transcribed Document [facility] [place] [address] [place] [address] ProviderMckenzie MD [address] [place] [address] Social History Tobacco Use Types Packs/Day Years Used Date Smoking Tobacco: Never Assessed Comments Unknown Sex and Gender Information Value Date Recorded Sex Assigned at Not on file Legal Sex Female 5:34 PM CDT Gender Identity Not on file Sexual Orientation Not on file documented as of this encounter Miscellaneous Notes * Cerner Conversion Note - Mckenzie Leija MD - 07/16/2021 11:58 AM PHOTOFINISHING LABORATORY WORKER Pre Procedure Adult Entered On: 07/16/2021 12:02 EST Performed On: 07/16/2021 11:58 EST by Maryann Reeves RN Height and Weight, Clinical Dosing Height Source : Stated Height Entry Format : [place] Height, Feet : 5 ft(Converted to: 152 cm, 60 Inch) Height, Inches : 7 Inch(Converted to: 0 ft 7 Inch, 17.78 cm) Clinical Height : 170.18 cm Weight Source : Standing scale Weight Entry Format : [place] Clinical Dosing Weight : 79.09 kg Weight, Pounds : 174 lb Body Surface Area (BSA) : 1.91 m2 Body Mass Index : 27.3 kg/m2 (HI) [place] Body Weight : 61 kg Maryann Reeves RN - 07/16/2021 11:58 EST Health Histories Smoking Status : 5-9 cigarettes (between 1/4 to 1/2 pack)/day in last 30 days Smokeless Tobacco Status : Never Desires Tobacco Cessation Medication : No Reason for No Tobacco Cessation Medication : Refuses FDA approved medications Maryann Reeves RN - 07/16/2021 11:58 EST Social History (As Of: 07/16/2021 12:02:34 EST) Infectious Disease History Does patient have symptoms of COVID-19? : No Has the Patient Been Tested for COVID-19 in the last 14 days? : Yes, Patient stated results Negative Does the Patient state known exposure to a COVID-19 positive case in the last 14 days? : No Patient Vaccinated for COVID-19 : Fully vaccinated Maryann Reeves RN - 07/16/2021 11:58 EST Infectious Disease Risk Screening Grid Cough < 2 wks of unknown origin : NO Cough > 2 weeks : NO Blood in Sputum : NO Fever or self-reported Fever : NO Rash of unknown origin : NO Headache : NO Stiff neck : NO Night Sweats : NO Unexplained Weight Loss : NO Diarrhea (3 episode per day) : NO Maryann Reeves RN - 07/16/2021 11:58 EST Physical contact outside [place] in the last 30 days : No Hospitalized in Foreign Country : No Infectious Disease History : None INF Disease TB Screening Calc : 0 INF Disease Recent Travel Calc : 0 Maryann Reeves RN - 07/16/2021 11:58 EST COVID19 PreProcedure Screening Is this an Emergent or Add on Procedure? : No Date PreProcedure COVID-19 test known? : Yes Date of PreProcedure COVID-19 : 07/14/2021 EST Has patient been isolated since the test : N/A - PreProcedure, in-person visit Exposed to COVID19 symptoms since test? : N/A - PreProcedure, in-person visit Maryann Reeves RN - 07/16/2021 11:58 EST Anesthesia/Transfusion History Family History of Anesthesia Reaction : No prior transfusion(s) Transfusion History : No prior anesthesia Family History of Anesthesia Reaction : None Maryann Reeves RN - 07/16/2021 11:58 EST Functional Assessment Living Situation : Home Patient Lives With : Adult Child/Children Current Home Treatments : None Maryann Reeves RN - 07/16/2021 11:58 EST [place] Suicide Severity Rating Scale (C-SSRS) CSSRS Past Month Wish to be : No CSSRS Past Month Suicidal Thoughts : No CSSRS Lifetime Suicide Behavior : No Suicide Severity Rating Score : 0 Suicide Severity Rating : No Additional Care Required at this time Maryann Reeves RN - 07/16/2021 11:58 EST Psychosocial History Currently in Unsafe Situation : No Maryann Reeves RN - 07/16/2021 11:58 EST Advance Directive Patient has Advance Directive *Q : No, patient refuses Advance Directive information Maryann Reeves RN - 07/16/2021 11:58 EST Teaching/Learning Assessment Barriers To Learning : None evident Maryann Reeves RN - 07/16/2021 11:58 EST Education Topics, Periop Preadmission Perioperative Education Grid Arrival Time/Place : Verbalizes understanding CAUTI : Verbalizes understanding Central Lines : Verbalizes understanding CHG Preoperative Bathing/Cloths : Verbalizes understanding Falls : Verbalizes understanding Incentive Spirometry : Verbalizes understanding Infection Control : Verbalizes understanding IV's : Verbalizes understanding NPO Status/Directions : Verbalizes understanding Pain Management : Verbalizes understanding Postoperative Care Preparations : Verbalizes understanding Preprocedure Preparations : Verbalizes understanding Preprocedure Tests/Labs : Verbalizes understanding Remove Body Piercings : Verbalizes understanding Responsible Adult : Verbalizes understanding SNE's : Verbalizes understanding Take/Hold Medications Pre-Procedure : Verbalizes understanding Other : Verbalizes understanding Maryann Reeves RN - 07/16/2021 11:58 EST General Info Want Family/Rep/Phys Notified of Admit : No Emergency Contact #1 : Clara Vargas Emergency Contact #1 Phone Number : [phone] Emergency Contact #1 Relationship : Daughter Emergency Contact #2 : x Emergency Contact #2 Phone Number : x Emergency Contact #2 Relationship : x Primary Language : [place] Communication Barrier : None Bobbin Winder Tender Needed : No Maryann Reeves RN - 07/16/2021 11:58 EST Sleep Apnea Risk Assmt Hx of Obstructive Sleep Apnea Diagnosis : No Snore Loudly : No Tired, Fatigued, or Sleepy During Day : No Observed Stopping Breathing During Sleep : No Have/Are Being Treated for Hypertension : No BMI Greater Than 35 kg/m2 : No Age over 50 Years Old : Yes Neck Circumference Greater Than 40 cm : No Gender Male : No STOP-BANG Sleep Apnea Risk Level Score : 1 Maryann Reeves RN - 07/16/2021 11:58 EST Adalberto Scale Adalberto Sensory Perception : No impairment Adalberto Moisture : Rarely moist Adalberto Activity : Walks frequently Adalberto Mobility : No limitation Adalberto Nutrition : Adequate Adalberto Friction and Shear : No apparent problem Adalberto Score : 22 Maryann Reeves RN - 07/16/2021 11:58 EST Pain Assessment Pain Assessment : Initial assessment Pain Scale Used : 0-10 Scale Maryann Reeves RN - 07/16/2021 11:58 EST Fall Risk Scales ABCs Fall Injury Risk Identification : Age ABC Fall Injury Risk : Moderate to high injury risk ARTEAGA Hx Falls Immediate/Within 3 Months : No [place] Secondary Diagnosis : Yes ARTEAGA Use of Ambulatory Aid : None ARTEAGA IV Therapy or IV Access : Yes [place] Gait/Transferring : Normal, bedrest, immobile [place] Mental Status : Oriented to own ability [place] Fall Risk Score : 35 ARTEAGA Fall Scale Risk Level : 25-45 Medium Risk Hailey Fall Interventions : Adequate lighting, Assistive devices within reach, Bed in low position, Call device within reach, Fall prevention handout/education per facility policy, Frequent orientation to call device, Personal items within reach, Reinforced to call for assistance before getting out of bed, Room free of clutter/spills, Upper side-rails up Maryann Reeves RN - 07/16/2021 11:58 EST Education Topics, Day of Surgery DayofSurgery Education Grid Anesthesia/Sedation : Verbalizes understanding CAUTI : Verbalizes understanding Central Lines : Verbalizes understanding CHG Preoperative Bathing/Cloths : Verbalizes understanding Fall Risks : Verbalizes understanding Family Instructions : Verbalizes understanding Incentive Spirometry : Verbalizes understanding Infection Control : Verbalizes understanding Infection Risks : Verbalizes understanding IV's : Verbalizes understanding Medication Instructions : Verbalizes understanding Pain Management : Verbalizes understanding Plan of Care : Verbalizes understanding Respiratory Care : Verbalizes understanding Responsible Adult : Verbalizes understanding SNE's : Verbalizes understanding Tubes/Drains : Verbalizes understanding Other : Verbalizes understanding Maryann Reeves RN - 07/16/2021 11:58 EST Valuables and Belongings Valuables and Belongings : Clothing Clothing : Common streetwear Clothing Disposition : With patient, Declines to send to security/safe Maryann Reeves RN - 07/16/2021 11:58 EST Pain Scale Intensity : 0 Maryann Reeves RN - 07/16/2021 11:58 EST Image 4 - Images currently included in the form version of this document have not been included in the text rendition version of the form. documented in this encounter Plan of Treatment Not on file documented as of this encounter Visit Diagnoses Not on filedocumented in this encounter
--- OUTSIDE RECORDS SUMMARY | 2025-01-17 11:41 | XMS_ITS | Encounter Summary ---
Author Organization [employer] ([place], [place], [place], [place]) Address [address] [place] [address] Care Team Providers Care Nursery Technician Name Role Phone Unavailable Primary Care Provider Unavailabl e Encounter Details Date Type Department Care Team (Late st Contact Info) Description 07/16/2021 Transcribed Document [facility] Family Medicine [address] [place] [address] ProviderMckenzie MD [address] [place] [address] Social History Tobacco Use Types Packs/Day Years Used Date Smoking Tobacco: Never Assessed Comments Unknown Sex and Gender Information Value Date Recorded Sex Assigned at Not on file Legal Sex Female 5:34 PM CDT Gender Identity Not on file Sexual Orientation Not on file documented as of this encounter Miscellaneous Notes * Cerner Conversion Note - Mckenzie Leija MD - 07/16/2021 3:34 PM SKIVER UPPERS OR LININGS Patient Education Materials Follows: Radial Site Care This sheet gives you information about how to care for yourself after your procedure. Your health care provider may also give you more specific instructions. If you have problems or questions, contact your health care provider. What can I expect after the procedure? After the procedure, it is common to have: ??? Bruising and tenderness at the catheter insertion area. Follow these instructions at home: Medicines ??? Take sbcw-qzs-pxyzucz and prescription medicines only as told by your health care provider. Insertion site care ??? Follow instructions from your health care provider about how to take care of your insertion site. Make sure you: ? Wash your hands with soap and water before you change your bandage (dressing). If soap and water are not available, use hand bin piler. ? Change your dressing as told by your health care provider. ? Leave stitches (sutures), skin glue, or adhesive strips in place. These skin closures may need to stay in place for 2 weeks or longer. If adhesive strip edges start to loosen and curl up, you may trim the loose edges. Do not remove adhesive strips completely unless your health care provider tells you to do that. ??? Check your insertion site every day for signs of infection. Check for: ? Redness, swelling, or pain. ? Fluid or blood. ? Pus or a bad smell. ? Warmth. ??? Do not take baths, swim, or use a hot tub until your health care provider approves. ??? You may shower 24?48 hours after the procedure, or as directed by your health care provider. ? Remove the dressing and gently wash the site with plain soap and water. ? Pat the area dry with a clean towel. ? Do not rub the site. That could cause bleeding. ??? Do not apply powder or lotion to the site. Activity ??? For 24 hours after the procedure, or as directed by your health care provider: ? Do not flex or bend the affected arm. ? Do not push or pull heavy objects with the affected arm. ? Do not drive yourself home from the hospital or clinic. You may drive 24 hours after the procedure unless your health care provider tells you not to. ? Do not operate machinery or power tools. ??? Do not lift anything that is heavier than 10 lb (4.5 kg), or the limit that you are told, until your health care provider says that it is safe. ??? Ask your health care provider when it is okay to: ? Return to work or school. ? Resume usual physical activities or sports. ? Resume sexual activity. General instructions ??? If the catheter site starts to bleed, raise your arm and put firm pressure on the site. If the bleeding does not stop, get help right away. This is a medical emergency. ??? If you went home on the same day as your procedure, a responsible adult should be with you for the first 24 hours after you arrive home. ??? Keep all follow-up visits as told by your health care provider. This is important. Contact a health care provider if: ??? You have a fever. ??? You have redness, swelling, or yellow drainage around your insertion site. Get help right away if: ??? You have unusual pain at the radial site. ??? The catheter insertion area swells very fast. ??? The insertion area is bleeding, and the bleeding does not stop when you hold steady pressure on the area. ??? Your arm or hand becomes pale, cool, tingly, or numb. These symptoms may represent a serious problem that is an emergency. Do not wait to see if the symptoms will go away. Get medical help right away. Call your local emergency services (911 in the [place] Do not drive yourself to the hospital. Summary ??? After the procedure, it is common to have bruising and tenderness at the site. ??? Follow instructions from your health care provider about how to take care of your radial site wound. Check the wound every day for signs of infection. ??? Do not lift anything that is heavier than 10 lb (4.5 kg), or the limit that you are told, until your health care provider says that it is safe. This information is not intended to replace advice given to you by your health care provider. Make sure you discuss any questions you have with your health care provider. Document Revised: 07/26/2018 Document Reviewed: 07/26/2018 [employer] Patient Education ? 2020 [employer]. Radiology Coronary Angiogram A coronary angiogram is an X-ray procedure that is used to examine the arteries in the heart. Contrast dye is injected through a long, thin tube (catheter) into these arteries. Then X-rays are taken to show any blockage in these arteries. You may have this procedure if you: ??? Are having chest pain, or other symptoms of angina, and you are at risk for heart disease. ??? Have an abnormal stress test or test of your heart's electrical activity (electrocardiogram, or ECG). ??? Have chest pain and heart failure. ??? Are having irregular heart rhythms. A coronary angiogram or heart catheterization can show if you have valve disease or a disease of the aorta. This procedure can also be used to check the overall function of your heart muscle. Let your health care provider know about: ??? Any allergies you have, including allergies to medicines or contrast dye. ??? All medicines you are taking, including vitamins, herbs, eye drops, creams, and zyck-clb-ynrpbqh medicines. ??? Any problems you or family members have had with anesthetic medicines. ??? Any blood disorders you have. ??? Any surgeries you have had. ??? Any history of kidney problems or kidney failure. ??? Any medical conditions you have. ??? Whether you are or may be . ??? Whether you are . What are the risks? Generally, this is a safe procedure. However, problems may occur, including: ??? Infection. ??? Allergic reaction to medicines or dyes that are used. ??? Bleeding from the insertion site or other places. ??? Damage to nearby structures, such as blood vessels, or damage to kidneys from contrast dye. ??? Irregular heart rhythms. ??? Stroke (rare). ??? Heart attack (rare). What happens before the procedure? Staying hydrated Follow instructions from your health care provider about hydration, which may include: ??? Up to 2 hours before the procedure ? you may continue to drink clear liquids, such as water, clear fruit juice, black coffee, and plain tea. Eating and drinking restrictions Follow instructions from your health care provider about eating and drinking, which may include: ??? 8 hours before the procedure ? stop eating heavy meals or foods, such as meat, fried foods, or fatty foods. ??? 6 hours before the procedure ? stop eating light meals or foods, such as toast or cereal. ??? 6 hours before the procedure ? stop drinking milk or drinks that contain milk. ??? 2 hours before the procedure ? stop drinking clear liquids. Medicines Ask your health care provider about: ??? Changing or stopping your regular medicines. This is especially important if you are taking diabetes medicines or blood thinners. ??? Taking medicines such as aspirin and ibuprofen. These medicines can thin your blood. Do not take these medicines unless your health care provider tells you to take them. Aspirin may be recommended before coronary angiograms even if you do not normally take it. ??? Taking lghx-jls-rykktdc medicines, vitamins, herbs, and supplements. General instructions ??? Do not use any products that contain nicotine or tobacco for at least 4 weeks before the procedure. These products include cigarettes, e-cigarettes, and chewing tobacco. If you need help quitting, ask your health care provider. ??? You may have an exam or testing. ??? Plan to have someone take you home from the hospital or clinic. ??? If you will be going home right after the procedure, plan to have someone with you for 24 hours. ??? Ask your health care provider: ? How your insertion site will be marked. ? What steps will be taken to help prevent infection. These may include: ? Removing hair at the insertion site. ? Washing skin with a germ-killing soap. ? Taking antibiotic medicine. What happens during the procedure? You will lie on your back on an X-ray table. ??? An IV will be inserted into one of your veins. ??? Electrodes will be placed on your chest. ??? You will be given one or more of the following: ? A medicine to help you relax (sedative). ? A medicine to numb the catheter insertion area (local anesthetic). ??? You will be connected to a continuous ECG monitor. ??? The catheter will be inserted into an artery in one of these areas: ? Your groin area in your upper thigh. ? Your wrist. ? The fold of your arm, near your elbow. ??? An X-ray procedure (fluoroscopy) will be used to help guide the catheter to the opening of the blood vessel to be used. ??? A dye will be injected into the catheter and X-rays will be taken. The dye will help to show any narrowing or blockages in the heart arteries. ??? Tell your health care provider if you have chest pain or trouble breathing. ??? If blockages are found, another procedure may be done to open the artery. ??? The catheter will be removed after the fluoroscopy is complete. ??? A bandage (dressing) will be placed over the insertion site. Pressure will be applied to stop bleeding. ??? The IV will be removed. The procedure may vary among health care providers and hospitals. What happens after the procedure? Your blood pressure, heart rate, breathing rate, and blood oxygen level will be monitored until you leave the hospital or clinic. ??? You will need to lie still for a few hours, or for as long as told by your health care provider. ? If the procedure is done through the groin, you will be told not to bend or cross your legs. ??? The insertion site and the pulse in your foot or wrist will be checked often. ??? More blood tests, X-rays, and an ECG may be done. ??? Do not drive for 24 hours if you were given a sedative during your procedure. Summary ??? A coronary angiogram is an X-ray procedure that is used to examine the arteries in the heart. ??? Contrast dye is injected through a long, thin tube (catheter) into each artery. ??? Tell your health care provider about any allergies you have, including allergies to contrast dye. ??? After the procedure, you will need to lie still for a few hours and drink plenty of fluids. This information is not intended to replace advice given to you by your health care provider. Make sure you discuss any questions you have with your health care provider. Document Revised: 01/10/2020 Document Reviewed: 01/10/2020 [employer] Patient Education ? 2020 [employer]. documented in this encounter Plan of Treatment Not on file documented as of this encounter Visit Diagnoses Not on filedocumented in this encounter
--- OUTSIDE RECORDS SUMMARY | 2025-01-17 11:41 | XMS_ITS | Encounter Summary ---
Author Organization [employer] ([place], [place], [place], [place]) Address [address] [place] [address] Care Team Providers Care Watch Dial Maker Name Role Phone Unavailable Primary Care Provider Unavailabl e Encounter Details Date Type Department Care Team (Late st Contact Info) Description 07/16/2021 Transcribed Document [facility] Family Medicine [address] [place] [address] ProviderMckenzie MD [address] [place] [address] Social History Tobacco Use Types Packs/Day Years Used Date Smoking Tobacco: Never Assessed Comments Unknown Sex and Gender Information Value Date Recorded Sex Assigned at Not on file Legal Sex Female 5:34 PM CDT Gender Identity Not on file Sexual Orientation Not on file documented as of this encounter Miscellaneous Notes * Cerner Conversion Note - Historical ProviderMD - 07/16/2021 3:54 PM 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 Nursing Discharge Summary Entered On: 07/16/2021 15:55 EST Performed On: 07/16/2021 15:54 EST by Maryann Reeves egg caser Documentation Discharge Date/Time : 07/16/2021 18:30 EST Maryann Reeves RN - 07/16/2021 19:02 EST Patient Disposition, General : Discharge Discharge To : Home with ambulatory/outpatient follow-up Mode Of Departure, General Discharge : Wheelchair Accompanied By, Discharge : Daughter Personal Belongings With Patient : Yes Discharge Instructions Reviewed With, Opportunity For Questions Given : Patient, Daughter Patient Education Completed : Yes Teaching Method : Printed materials Teaching Evaluation : Verbalizes understanding Maryann Reeves RN - 07/16/2021 15:54 EST Electronically signed by [facility] Conversion Benefits Clerk Cerner at 10/18/2022 6:15 PM CDT documented in this encounter Plan of Treatment Not on file documented as of this encounter Visit Diagnoses Not on filedocumented in this encounter
--- OUTSIDE RECORDS SUMMARY | 2025-01-17 11:41 | XMS_ITS | Encounter Summary ---
Author Organization [employer] ([place], [place], [place], [place]) Address [address] [place] [address] Care Team Providers Care Catalytic Case Operator Name Role Phone Unavailable Primary Care Provider Unavailabl e Encounter Details Date Type Department Care Team (Late st Contact Info) Description 07/16/2021 Transcribed Document [facility] [place] Family Medicine [address] [place] [address] ProviderMckenzie MD [address] [place] [address] Social History Tobacco Use Types Packs/Day Years Used Date Smoking Tobacco: Never Assessed Comments Unknown Sex and Gender Information Value Date Recorded Sex Assigned at Not on file Legal Sex Female 5:34 PM CDT Gender Identity Not on file Sexual Orientation Not on file documented as of this encounter Miscellaneous Notes * Cerner Conversion Note - Mckenzie Leija MD - 07/16/2021 5:38 PM VP CARDIOVASCULAR [facility] [place] [address] KAREN RAY :1950 Visit Time:07/16/2021 Your Visit Summary Your Care Team Admitting Physician - CARLY TRINIDAD MD-CAR Attending Physician - CARLY TRINIDAD MD-CAR Primary Care Physician - IZZY, UNKNOWN Referring Physician - CARLY TRINIDAD MD-CAR Your Diagnosis Abnormal result of other cardiovascular function study, Abnormal result of other cardiovascular function study, Abnormal result of other cardiovascular function study These Are Your Goals No qualifying data available. Discharge Vitals Heart Rate (Monitored) 64 Respiratory Rate 19 Blood Pressure 153/65 What to do next Instructions From Your Care Team Diet after Discharge: Resume usual diet as tolerated Activity after Discharge: Rest and relax today, No strenuous activity, No lifting/pushing/pulling more than 10 pounds for 1 week., _ Driving Restrictions: No driving for 24 hours. Showering/Bathing: You may remove the dressing in 24 hours and shower. , _ Medications: No changes to your current home medications., _, _ Dressing Instructions: You can remove the dressing in 24 hours., _, _ Follow-Up Appointments Follow Up with Follow up with primary care provider When Comments Follow-up as instructed Where: Medications What How Much When Instructions Next Dose atorvastatin (atorvastatin 40 mg oral tablet) Oral Every Day cariprazine (Vraylar 3 mg oral capsule) Oral Every Day clonazePAM (KlonoPIN 0.5 mg oral tablet) 1 Tablet(s) Oral Two Times A Day lisinopril (lisinopril 10 mg oral tablet) 1 Tablet(s) Oral Every Day metoprolol (metoprolol succinate 25 mg oral capsule, extended release) Oral Every Day Take your medications faithfully. Do NOT skip medication. Do NOT stop taking medications without the direction of a physician. Carry a list of your medications with you at all times, and take this medication list with you to your first follow up visit. Report any side effects. Avoid herbal remedies unless discussed with your physician. As part of your treatment plan, your physician may have prescribed a limited course of a controlled substance. This medication may be given to help people with moderate or severe pain or for other medical conditions, but there are risks involved with treatment. Common side effects may include nausea, constipation, drowsiness, sweating, itching, dry mouth, and rash. More serious side effects may include cognitive and motor impairment, like problems with thinking, concentrating, alertness, and movement (e.g. slowed reflexes), and driving and operating heavy machinery can be dangerous. It is important for you to talk to your physician if you have these side effects or questions. These controlled substances can produce physical dependence and be habit-forming if taken for an extended period of time, which means that the body has gotten used to them and may experience withdrawal symptoms if they are abruptly stopped. Withdrawal symptoms can include runny nose, sweating, goose bumps, diarrhea, abdominal cramping, rapid heartbeat, difficulty sleeping, and nervousness. Please dispose of unused and medications per your retail pharmacy guidance. Allergies penicillin Immunizations This Visit No Immunizations Found Education Materials Radial Site Care This sheet gives you [...] these instructions at home: Medicines ??? Take rsal-xcj-gilmavp and prescription medicines only as told by your health care provider. Insertion site care ??? Follow instructions from your health care provider about how to take care of your insertion site. Make sure you: ? Wash your hands with soap and water before you change your bandage (dressing). If soap and water are not available, use hand cardiology tech. ? Change your dressing as told by [...] care provider approves. ??? You may shower 24???48 hours after the procedure, or as directed [...] provider. Document Revised: 07/26/2018 Document Reviewed: 07/26/2018 [employer] Patient Education ?? 2020 [employer] Coronary Angiogram A coronary angiogram is an [...] including vitamins, herbs, eye drops, creams, and xzxb-lyj-kimkjoc medicines. ??? Any problems you or family [...] Up to 2 hours before the procedure ??? you may continue to drink clear liquids, such as water, clear fruit juice, black coffee, and plain tea. Eating and drinking restrictions Follow instructions from your health care provider about eating and drinking, which may include: ??? 8 hours before the procedure ??? stop eating heavy meals or foods, such as meat, fried foods, or fatty foods. ??? 6 hours before the procedure ??? stop eating light meals or foods, such as toast or cereal. ??? 6 hours before the procedure ??? stop drinking milk or drinks that contain milk. ??? 2 hours before the procedure ??? stop drinking clear liquids. Medicines Ask your [...] do not normally take it. ??? Taking azir-vrw-zbfgbgm medicines, vitamins, herbs, and supplements. General instructions [...] provider. Document Revised: 01/10/2020 Document Reviewed: 01/10/2020 [employer] Patient Education ?? 2020 [employer] Emergency Awareness and Preventative Care STROKE is an EMERGENCY Every Minute Counts Act FAST and Check for these signs: FACE Does the face look uneven? ARM Does one arm drift down? SPEECH Does their speech sound strange? TIME Call at any sign of stroke Stroke Risk Factors Atrial Fibrillation (irregular heartbeat) Diabetes Family history of stroke Heart Disease Heavy alcohol use High Blood Pressure High Cholesterol Physical inactivity and obesity Smoking Cigarette Smoking The facts are clear, cigarette smoking will shorten your life. Smoking can cause many illnesses along the way. As a healthcare provider, we recommend that you stop smoking. Assistance with quitting is available by contacting 9-602-RYONNOW. This is a free resource providing counseling, support, and referral. Or you may contact your personal physician. National Suicide Prevention Lifeline: The National Suicide Prevention Lifeline is a national network of local crisis centers that provides free and confidential emotional support to people in suicidal crisis or emotional distress 24 hours a day, 7 days a week. Don't Wait! Stop a Heart Attack Before it Starts What is a heart attack? A heart attack is damage or to a part of the heart from severely decreased or lack of blood flow to the heart. Over time, arteries can become narrow from the buildup of fat and cholesterol, which is called plaque. The plaque can rupture causing a blood clot to form. When the blood clot forms, the artery can become severely narrowed or completely blocked, causing a heart attack. Heart attack is the leading cause of in the [place]. 85% of muscle damage occurs within the first 2 hours. Delay in the recognition of heart attack symptoms increases the chances of . Know the early symptoms of a heart attack: Nausea Feeling of fullness in chest Jaw Pain Pain that travels down one or both arms Fatigue/being tired Anxiety Back Pain Chest pressure, squeezing, or discomfort Shortness of breath Sweating, or a cold sweat Feeling of impending doom There are unusual signs of a heart attack, too! Women, the elderly, and diabetics may present with atypical symptoms: Fainting/dizziness Weakness Confusion Risk Factors for a Heart Attack Some heart disease risk factors, such as age and family history, cannot be changed. Others, like smoking and lack of exercise, can be changed. Smoking High Cholesterol High Blood Pressure Family History Obesity Age Gender (Males are at higher risk) Lack of Exercise Diabetes Diet Stress Excessive Alcohol Intake If you or someone you know is experiencing the signs and symptoms of a heart attack, DON???T DELAY. Call immediately and seek help. If someone collapses, perform CPR! Do not attempt to drive if you are having symptoms of heart attack. Hands-Only CPR Why Hands-Only CPR? Hands-Only CPR has been shown to be as effective as conventional CPR for cardiac arrests that occur outside of a hospital. Survival depends on immediately receiving CPR from someone nearby. How do you perform Hands-Only CPR? There are two easy steps: Call 9-1-1 if you see a teen or adult collapse Push hard and fast in the center of the chest at a beat of 100 beats per minute. Save a life! 4 WAYS TO GET AHEAD OF SEPSIS SEPSIS is a MEDICAL EMERGENCY. Time matters! Infections put you and your family at risk for a life-threatening condition called sepsis. Sepsis is the body's extreme response to an infection. It is life-threatening, and without timely treatment, sepsis can rapidly lead to tissue damage, organ failure, and . Sepsis happens when an infection you already have-in your skin, lungs, urinary tract or somewhere else-triggers a chain reaction throughout your body. 1 PREVENT INFECTIONS Take good care of chronic conditions. Talk to your doctor about getting the recommended vaccines. 2 PRACTICE GOOD HYGIENE Wash your hands frequently. Keep cuts or open sores clean and covered until they are healed. 3 KNOW THE SYMPTOMS Confusion or disorientation Shortness of breath High heart rate Fever, shivering, or feeling very cold Extreme pain or discomfort Clammy or sweaty skin 4 ACT FAST Get medical care IMMEDIATELY if you suspect sepsis or if you have an infection that is not getting better or is getting worse. To learn more about sepsis and how to prevent infections, visit www.cdc.gov/sepsis. Test Results Laboratory or Other Results This Visit (last charted value for your 07/16/2021 visit) Hematology 07/16/2021 12:02 PM Platelet Count: 220 K/uL -- Normal range between ( 163 and 369 ) 07/16/2021 11:55 AM Hemoglobin POC: 16.7 Gram/dL -- Normal range between ( 12.0 and 17.0 ) Hematocrit POC: 49.0 % -- Normal range between ( 38.0 and 51.0 ) General Chemistry 07/16/2021 11:55 AM eGFR : 60 mL/min/1.73m2 eGFR NonAfrican: 49 mL/min/1.73m2 Sodium POC: 144 mmol/L -- Normal range between ( 138 and 146 ) Ca Ioniz POC: 1.35 mmol/L -- Normal range between ( 1.12 and 1.32 ) Potassium POC: 3.8 mmol/L -- Normal range between ( 3.5 and 4.9 ) Creatinine POC: 1.1 mg/dL -- Normal range between ( 0.6 and 1.3 ) BUN POC: 20 mg/dL -- Normal range between ( 8 and 26 ) CO2 POC: 26.0 mmol/L -- Normal range between ( 24.0 and 29.0 ) Chloride POC: 105 mmol/L -- Normal range between ( 98 and 109 ) Glucose POC: 103 mg/dL -- Normal range between ( 70 and 105 ) Anion Gap POC: 17.0 mmol/L -- Normal range between ( 10.0 and 20.0 ) Patient Name:KAREN RAY I have received and understand this information and was given the opportunity to ask questions. Patient/Trade Recruiter Name: Patient/Trade Recruiter Signature: Relationship to Patient: Clinician/Hospital Trade Recruiter Signature: Date: documented in this encounter Plan of Treatment Not on file documented as of this encounter Visit Diagnoses Not on filedocumented in this encounter
[2025-01-17 12:08] LABS: Hematocrit 46.4 % (37.0-47.0); Hemoglobin 14.5 g/dL (12.2-16.2); Immature Granulocytes % 0.2 %; Mean Corpuscular HGB Conc 31.3 g/dL (31.8-35.4); Mean Corpuscular Hemoglobin 30.0 pg (27.0-31.2); Mean Corpuscular Volume 96.1 fl (81-99); Nucleated Red Blood Cells % 0 %; Platelet Count 198 K/mm3 (142-424); Red Blood Count 4.83 M/mm3 (4.20-5.40); Red Cell Distribution Width-SD 45.0 fL; White Blood Count 9.2 K/mm3 (4.8-10.8)
[2025-01-17 12:27] LABS: Alanine Aminotransferase 17 U/L (12-78); Albumin Level 4.0 g/dl (3.5-5.0); Alkaline Phosphatase 147 U/L (38-126); Anion Gap 15.8 mEq/L (5-15); Aspartate Amino Transferase 24 U/L (14-36); Bilirubin,Direct 0.3 mg/dl (0.0-0.4); Bilirubin,Indirect 0.3 mg/dL (0.0-0.9); Bilirubin,Total 0.6 mg/dl (0.2-1.3); Bilirubin,Unconjugated 0.4 mg/dL (0.0-1.1); Blood Urea Nitrogen 15 mg/dl (7-17); Calcium 9.9 mg/dl (8.4-10.2); Carbon Dioxide 25 mmol/L (22.0-30.0); Chloride 103 mmol/L (98-107); Cholesterol 169 mg/dl (140-200); Creatinine,Serum 1.10 mg/dl (0.52-1.04); Estimated Glomerular Filt Rate 49 ml/min (>60); GFR (African American) 59 ML/MIN (>60); Glucose 96 mg/dl (74-100); HDL Cholesterol 61 mg/dl (40-60); Magnesium 1.9 mg/dl (1.6-2.3); Potassium 4.8 mmoL/L (3.5-5.1); Sodium 139 mmol/L (136-145); Total Protein,Serum 6.4 g/dl (6.3-8.2); Triglycerides 83 mg/dl (30-150)
[2025-01-17 12:45] LABS: Free T4 (Free Thyroxine) 1.25 ng/dl (0.78-2.19)
[2025-01-17 12:58] LABS: Thyroid Stimulating Hormone 1.55 uIU/mL (0.465-4.68)
== END 2025-01-17 23:59 | disposition home or self-care (01) ==
LOC: LAB 11:39
PROVIDERS: PCP Internal Medicine; Visit Provider Nurse Practitioner Family
DX: I65.23 Occlusion and stenosis of bilateral carotid arteries (principal); R06.09 Other forms of dyspnea; E78.49 Other hyperlipidemia
CPT/HCPCS: 36415; 80048; 80061; 80076; 83735; 84439; 84443; 85025

== ENCOUNTER 2025-01-31 11:28 | Outpatient (CLI) | payer MEDICARE, OTHER, SELFPAY ==
--- NOTE | 2025-01-31 | CA_ITS ---
APPROVED REPORT Exam: Pharmacologic Technologist: Aicha Santiago Ht: 5 ft 7 in Wt: 208 lbs BSA: 2.06 m2 HR: 90 bpm BP: 165/66 mmHg Medical History Medical History: HTN, Hyperlipidemia, Smoking Medications: Atorvastatin, Klonopin, Pristiq, Lisinopril, Potassium Allergies: Penicillins Cardiac Risk Factors: HTN, Hyperlipidemia, Smoking Stress Test Details Test: Lexiscan HR Resting HR: 90 bpm Max Heart Rate (APMHR): 146.057685 bpm Target HR (85% APMHR): 124.279674 bpm Recovery HR: 79 bpm BP Resting BP: 165.0/66.0 mmHg Max BP: 167.0/68.0 mmHg Recovery BP: 130.0/52.0 mmHg ECG Stress ECG Conclusion Pt had soa EKG nondiagnostic - [place] Electronically signed by : Elaina Zapata MD 02/01/2025 13:07:03
--- NOTE | 2025-01-31 11:30 | NM_ITS ---
APPROVED REPORT Exam: Nuclear Stress Test Indication: SOB, HTN, High cholesterol, Tobacco use, Family history Patient Location: Outpatient Stress Tech: Aicha Santiago [place] Tech:Marla Mar, ARRT, RT (R)(N) Ht: 5 ft 7 in Wt: 200 lbs Bra Size: 36C HR: 66 bpm BP: 165/66 mmHg BSA: 2.02 m2 TID: 1.29 BMI: 31.3 History: SOB, HTN, High cholesterol, Tobacco use, Family history Procedure: Patient received 0.4 mg of intravenous Lexiscan, resting heart rate 66 bpm, resting blood pressure 165/66 mmHg, with Lexiscan maximum heart rate achieved was 100 bpm which is % of the maximum predicted heart rate and blood pressure was 176/65 mmHg. With Lexiscan, patient denied any complaint of chest pain. Cardiac Stress and Resting SPECT Images: Cardiac Stress and Resting SPECT images were obtained using technetium 99m Myoview 31.4 mCi stress and 10.46 mCi at rest. Resting stress imaging in supine and prone positions demonstrate no evidence of fixed or reversible perfusion defects. There is increase in transient ischemic dilatation ratio (TID 1.29), which may be suggestive of possible multivessel disease or balanced ischemia. Gated imaging demonstrates normal global and regional LV systolic function. LVEF is calculated at 53%. Conclusion: No evidence of fixed or reversible perfusion defects. There is increase in transient ischemic dilatation ratio (TID 1.29), which may be suggestive of possible multivessel disease or balanced ischemia. Gated imaging demonstrates normal global and regional LV systolic function. LVEF is calculated at 53%. Electronically signed by : Elaina Zapata MD 02/01/2025 13:05:00
--- OUTSIDE RECORDS SUMMARY | 2025-01-31 11:31 | XMS_ITS | Encounter Summary ---
Author Organization [facility] Address [address] [place] [address] Care Team Providers Care Personal Lines Insurance Advisor Name Role Phone Asael Johnson DO Primary Care Provider + Reason for Visit * Reason Onset Date Comments Med Refill 02/10/2023 Encounter Details Date Type Department Care Team (Late st Contact Info) Description 02/10/2023 Refill [facility] CARDIOLOG[facility] [address] [place] [id number] Sweetie Guerrero, BUYING INTERN [address] [place] [address] Med Refill Social History Tobacco Use Types Packs/Day Years Used Date Smoking Tobacco: Every Day Cigarettes 0.5 15 Passive Smoke Exposure: Current Smokeless Tobacco: Never Alcohol Use Standard Drinks/Week Comments Yes 0 (1 standard drink = 0.6 oz pur e alcohol) Rarely Comments Unknown Sex and Gender Information Value Date Recorded Sex Assigned at Not on file Legal Sex Female 10:35 AM EST Gender Identity Not on file Sexual Orientation Not on file documented as of this encounter Miscellaneous Notes * Telephone Encounter - Breonna Chavez RegRomeo Rep - 02/10/2023 1:57 PM EDT Caller: Perla Medrano Relationship: Self Best call back number: [phone] Requested Prescriptions: Requested Prescriptions Pending Prescriptions Disp Refills atorvastatin (LIPITOR) 40 MG tablet 30 tablet 10 Sig: Take 0.5 tablets by mouth Daily. Pharmacy where request should be sent: [facility] [place] - [address] [phone] [facility] [phone] FX Last office visit with prescribing clinician: 01/27/2023 Last telemedicine visit with prescribing clinician: Visit date not found Next office visit with prescribing clinician: 04/21/2023 Additional details provided by patient: PT HAS NOT BEEN ABLE TO TAKE THIS MEDICATION, REPORTS THAT IT WAS NEVER CALLED IN TO PHARMACY Does the patient have less than a 3 day supply: [x] Yes [] No Would you like a call back once the refill request has been completed: [] Yes [] No If the office needs to give you a call back, can they leave a voicemail: [] Yes [] No Apple Manzano 02/10/23 13:57 EDT documented in this encounter Plan of Treatment Not on file documented as of this encounter Visit Diagnoses Not on filedocumented in this encounter Care Teams Personal Lines Insurance Advisor Relationship Specialty Start Date End Date Asael Johnson DO [address] [place] [address] PCP - General Internal Medicine 05/22/24 documented as of this encounter
--- OUTSIDE RECORDS SUMMARY | 2025-01-31 11:31 | XMS_ITS | Referral Summary ---
Author Organization [employer] ([place], [place], [place], [place]) Address [address] [place] [address] Care Team Providers Care Cable Coverer Name Role Phone Unavailable Primary Care Provider [...]
--- OUTSIDE RECORDS SUMMARY | 2025-01-31 11:31 | XMS_ITS | Encounter Summary ---
Author Organization [facility] ([place], [place], [place], [place]) Address [address] [place] [address] Care Team Providers Care Drawing Hand Name Role Phone Unavailable Primary Care Provider Unavailabl e Encounter Details Date Type Department Care Team (Late st Contact Info) Description 07/16/2021 Transcribed Document [facility] [place] Family Medicine [address] [place] [address] ProviderMckenzie MD [address] [place] [address] Social History Tobacco Use Types [...] Mckenzie Leija MD - 07/16/2021 11:58 AM FOREST TECHNICIAN Pre Procedure Adult Entered On: 07/16/2021 12:02 EST Performed On: 07/16/2021 11:58 EST by Maryann Reeves RN Height and Weight, Clinical Dosing Height Source : Stated Height Entry Format : [place] Height, Feet : 5 ft(Converted to: 152 cm, 60 Inch) Height, Inches : 7 Inch(Converted to: 0 ft 7 Inch, 17.78 cm) Clinical Height : 170.18 cm Weight Source : Standing scale Weight Entry Format : [place] Clinical Dosing Weight : 79.09 kg Weight, Pounds : 174 lb Body Surface Area (BSA) : 1.91 m2 Body Mass Index : 27.3 kg/m2 (HI) [place] Body Weight : 61 kg Maryann Reeves [...] Maryann Reeves RN - 07/16/2021 11:58 EST [place] Suicide Severity Rating Scale (C-SSRS) CSSRS Past [...] Vargas Emergency Contact #1 Phone Number : [phone] Emergency Contact #1 Relationship : Daughter Emergency Contact #2 : x Emergency Contact #2 Phone Number : x Emergency Contact #2 Relationship : x Primary Language : Armenian Communication Barrier : None Staff Command And Control Officer Needed : No Maryann Reeves RN - [...] Scale Risk Level : 25-45 Medium Risk Leonard Fall Interventions : Adequate lighting, Assistive devices [...]
--- OUTSIDE RECORDS SUMMARY | 2025-01-31 11:31 | XMS_ITS | Encounter Summary ---
Author Organization [employer] ([place], [place], [place], [place]) Address [address] [place] [address] Care Team Providers Care Skip Loader Name Role Phone Unavailable Primary Care Provider Unavailabl e Encounter Details Date Type Department Care Team (Late st Contact Info) Description 07/16/2021 Transcribed Document [facility] [place] [facility] [place] [address] ProviderMckenzie MD [address] [place] [address] Social History Tobacco Use Types [...] Mckenzie Leija MD - 07/16/2021 11:48 AM BARTENDER SERVER Patient: KAREN RAY Age: 70 years Sex: Female : 1950 Associated Diagnoses: None Author: CARLY SRINIVASAN MD-CAR Basic Information PCP: [facility] Strategic Communications Specialist: Dr. Duckworth Chief Complaint Exertional Dyspnea, Abnormal Stress History of Present Illness 70 year old female with a hx. of HTN, HLD, Carotid Stenosis, and Tobacco Abuse. The patient reports progressive exertional dyspnea. She describes her breathing as tight . Recent Lexiscan suggest anterior ischemia. Dr. Dorinda Duckworth has referred her for further cardiac evaluation. Patient presents today for [facility] with Dr. Srinivasan. Review of Systems Constitutional: [...] Past Medical History: Active HLD - Hyperlipidemia (103597808) HTN - Hypertension (2025251429) Tobacco abuse (466572858) PVD - peripheral vascular disease ([id number]) Family History: No family history items have [...] of motion, Normal strength. Integumentary: Warm, Dry, [place]. Neurologic: Alert, Oriented. Psychiatric: Cooperative, Appropriate mood [...] with Dr. Dorinda Duckworth Electronically signed by [facility] Conversion Worker'S Compensation Claims Examiner Cerner at 10/18/2022 6:15 PM CDT documented in this encounter Plan of Treatment Not on file documented as of this encounter Visit Diagnoses Not on filedocumented in this encounter
--- OUTSIDE RECORDS SUMMARY | 2025-01-31 11:31 | XMS_ITS | Clinical Summary ---
Author Organization [employer] ([place], [place], [place], [place]) Address [address] [place] [address] Care Team Providers Care Inspector Hairspring Name Role Phone Unavailable Primary Care Provider [...]
--- OUTSIDE RECORDS SUMMARY | 2025-01-31 11:31 | XMS_ITS | Clinical Summary ---
Author Organization [facility] Address [address] [place] [address] Care Team Providers Care Time Study Engineer Name Role Phone Unavailable Primary Care Provider Unavailabl e Encounters Date Type Department Care Team Description 11/01/2024 Telephone [facility] [address] [place] [address] Neurology, Physician, from Last 3 [...] Info) Description 02/12/2025 1:00 PM EDT Consult [facility] [address] [place] [address] Bony London MD [address] [place] [address] Health Maintenance Due Date Last Done [...] 2000 UKY-Zoster Vaccines (1 of 2) 2000 [id number] Vaccine (3 - season) 2024 06/19/2021, 09/11/2020 [...]
--- OUTSIDE RECORDS SUMMARY | 2025-01-31 11:31 | XMS_ITS | Encounter Summary ---
Author Organization [facility] Address [address] [place] [address] Care Team Providers Care Diesel Technology Instructor Name Role Phone Asael Johnson DO Primary Care Provider + Reason for Visit * Reason Comments Med Refill Encounter Details Date Type Department Care Team (Late st Contact Info) Description 12/28/2024 Refill [facility] CARDIOLOG[facility] [address] [place] [id number] Sweetie Guerrero, DENTURE FINISHER [address] [place] [address] Med Refill Social History Tobacco Use Types [...] on file documented as of this encounter Progress Notes * Link Colindres MA - 01/08/2025 11:44 AM EDTAddended by: LINK COLINDRES on: 01/08/2025 11:44 AM Modules accepted: Orders documented in this encounter Miscellaneous Notes * Telephone Encounter - Sharona Heredia MD - 01/08/2025 11:04 AM EDT We have two different doses listed in her chart. Please verify what she is taking and make sure we refill the correct one. I am ok to send in a 30day supply to get her to her appt. * Telephone Encounter - Keely Staples RegSched Rep - 01/08/2025 10:20 AM EDT Patient requested refills for her medications to get her through until she sees [facility] 01/17/25. Patient had not heard anything from this request. * Telephone Encounter - Sunday Rivas CMA - 12/28/2024 10:48 AM EDT REQUESTED ROUTINE LABS FROM PCP documented in this encounter Plan of Treatment Not on file documented as of this encounter Visit Diagnoses Not on filedocumented in this encounter Care Teams Diesel Technology Instructor Relationship Specialty Start Date End Date Asael Johnson DO [address] [place] [address] PCP - General Internal Medicine 05/22/24 documented as of this encounter
--- OUTSIDE RECORDS SUMMARY | 2025-01-31 11:31 | XMS_ITS | Encounter Summary ---
Author Organization [facility] Address [address] [place] [address] Care Team Providers Care Lacing Presser Name Role Phone Asael Johnson DO Primary Care Provider + Reason for Visit * Reason Comments Med Refill Encounter Details Date Type Department Care Team (Late st Contact Info) Description 12/19/2024 Refill [facility] CARDIOLOGY [address] [place] [address] Sweetie Guerrero, DONOR RELATIONS ASSOCIATE [address] [place] [address] Med Refill Social History Tobacco Use Types [...] as of this encounter Plan of Treatment Not on file documented as of this encounter Visit Diagnoses Not on filedocumented in this encounter Care Teams Lacing Presser Relationship Specialty Start Date End Date Asael Johnson DO [address] [place] [address] [place] [address] PCP - General Internal Medicine 05/22/24 documented as of this encounter
--- OUTSIDE RECORDS SUMMARY | 2025-01-31 11:31 | XMS_ITS | Clinical Summary ---
Author Organization [facility] Address [address] [place] [address] Care Team Providers Care Ship Steward Name Role Phone AlexAsael Bruno Primary Care Provider + Allergies Active Allergy Reactions Criticality Noted Date Comments Penicillins Other (See Comments) Low 05/17/2022 Patient gets the [employer] Medications clonazePAM (KlonoPIN) 0.5 MG tablet Take 0.5 tablets by mouth 2 (Two) Times a Day As Needed. 01/04/20 23 Active Ingrezza 60 MG capsule Take 1 capsule by mouth Daily. 08/30/19 24 Active potassium chloride 10 MEQ CR tabletIndication s:Bilateral leg edema Take 1 tablet by mouth 3 (Three) Times a Week if Needed (take with Lasix). 60 tablet 1 09/15/19 24 Active albuterol sulfate HFA 108 (90 Base) MCG/ACT inhaler Inhale 2 puffs Every 4 (Four) Hours As Needed for Wheezing. Active Cholecalciferol 25 MCG (1000 UT) tablet Take 1 tablet by mouth Daily. Active Umeclidinium-Rossy anterol (Anoro Ellipta) 62.5-25 MCG/ACT aerosol powder inhaler Inhale 1 puff Daily. Active ipratropium (ATROVENT) 0.02 % nebulizer solution Take 2.5 mL by nebulization 4 (Four) Times a Day. Active propranolol (INDERAL) 40 MG tabletIndication s:Primary hypertension,Ba mor Take 1 tablet by mouth 2 (Two) Times a Day. 60 tablet 1 05/17/20 24 Active atorvastatin (LIPITOR) 20 MG tablet TAKE 1 TABLET BY MOUTH DAILY 90 tablet 12/20/19 25 Active lisinopril (PRINIVIL,ZESTRI L) 10 MG tablet Take 1 tablet by mouth Daily. 30 tablet 01/09/20 25 Active lisinopril (PRINIVIL,ZESTRI L) 20 MG tabletIndication s:Primary hypertension Take 1 tablet by mouth Daily. 30 tablet 1 05/17/20 24 025 Discontin ued(Dose adjustmen t) lisinopril (PRINIVIL,ZESTRI L) 10 MG tablet TAKE 1 TABLET BY MOUTH DAILY 90 tablet 09/28/19 25 025 Discontin ued(Reord er) Active Problems Problem Noted Date Diagnosed Date Tremor 04/05/2024 Assessment & Plan (05/17/2024 5:53 PM EST): At her last visit her metoprolol was stopped due to being on both metoprolol and propranolol. Propranolol was increased to 20 mg twice a day. Patient reports no change in tremor. Patient reports she is now seeing her new PCP Dr. Johnson who increased her propranolol from 20 mg twice a day to 20 mg 3 times a day. But has not been referred to neurology at this time. Plan: Follow blood pressure and heart rate Increase propranolol to 40 mg twice a day Follow-up in 1 month Assessment & Plan (04/05/2024 2:32 PM EDT): She comes in today and request help with her tremor. She reports her tremor is persistent. She reports that her primary care nurse practitioner has moved offices and she does not plan to follow her. She reports that her primary care physician will not get started for another few weeks she has an appointment in late April. She reports that she was started on propranolol 10 mg twice daily for tremor about 6 months ago per her PCP. She reports she has not noticed any improvement of the tremor. The tremor is persistent. She reports in the past she has seen neurologist Dr. Serrano at [facility] in [facility]. She reports that she was on a medication that resulted in a tardive dyskinesia with movement in her mouth and bilateral arm tremor. She reports that she was given medication Ingrezza 60 mg daily and neuro has dismissed her. Plan: Consider returning to neurologist or consider referral to a different neurologist. Patient verbalized she plans to talk to her new family physician about this. She is on metoprolol and propranolol. She was on the metoprolol for her CAD. So I will plan to remove her from her metoprolol and increase her propranolol. Stop metoprolol 12.5 mg daily. Increase propranolol from 10 mg twice daily to 20 mg twice daily. Check blood pressure and heart rate at home Follow-up in 1 month to evaluate symptoms and give consideration to increasing medication doses. Thyroid cyst 09/15/2023 Assessment & Plan (09/15/2023 4:44 PM EDT): She has completed a thyroid ultrasound. Noted thyroid cyst and no suspicious thyroid nodule seen. Bilateral leg edema 08/04/2023 Assessment & Plan (09/15/2023 4:41 PM EDT): She reports that bilateral lower extremity edema that has been chronic and persistent is slightly improved on the Lasix. She reports she would like to continue the Lasix Labs reviewed and creatinine 1.09. Plan: She may continue Lasix 20 mg 1 tablet 3 times per week as needed for edema. Assessment & Plan (08/04/2023 4:38 PM EST): She reports bilateral lower extremity edema that has been persistent and chronic is worsening. She reports that she has taken Lasix in the past and this has been helpful. Plan: Lasix 20 mg that she may take 2-3 times per week as needed for edema. Potassium 10 mEq instructed to take on the days that she takes her Lasix. Recheck labs in 6 weeks to watch creatinine and potassium levels Bilateral carotid artery stenosis 04/21/2023 Assessment & Plan (08/04/2023 4:35 PM EST): Known history of bilateral carotid stenosis that was mild in the past. She has had persistent complaints of dizziness. She has not had follow-up in her carotids in 3 years. Carotid duplex bilateral completed at today's visit. Showing carotids continue to be mild less than 50% stenosis bilaterally. Assessment & Plan (04/21/2023 5:28 PM EDT): She has a known history of bilateral carotid stenosis that was mild in the past. She has a persistent complaint of dizziness. No recent follow-up in 3 years on carotids. Plan: Bilateral carotid duplex for follow-up on history of known disease. Coronary artery disease invo lving [place] coronary artery of [place] heart without angina pectoris 01/27/2023 Assessment & Plan (04/05/2024 2:22 PM EDT): Known history of mild coronary artery disease. Symptoms are stable. I suspect her shortness of breath is related to her COPD asthma and continued tobacco use. She has a park services specialist Dr. Knutson at [facility] Plan: Continued medical management of statin, beta-mark and LUDMILA Noted that her beta-mark is being adjusted from metoprolol to propranolol due to coexisting tremor Assessment & Plan (08/04/2023 4:36 PM EST): Known history of mild CAD. Symptoms are stable. I suspect that her shortness of air is related to her COPD and continued tobacco use. She has a park services specialist and she has scheduled follow-up with him. Plan: Continue medical management of statin, beta-mark and LUDMILA. Assessment & Plan (04/21/2023 5:34 PM EDT): Known history of mild CAD. Symptoms are stable. I suspect her shortness of air is related to her COPD and continued tobacco use. She has a park services specialist and she is encouraged to follow-up with him. She is on medical management of statin, beta-mark and she is asked to restart her LUDMILA. Assessment & Plan (01/31/2023 8:19 AM EDT): Known history of mild coronary artery disease of the right coronary artery seen on heart cath July 16, 2021. Her symptoms are stable. She is on medical management of statin, beta-mark and LUDMILA. We plan to hold her LUDMILA at this time but continue all other medical management. Primary hypertension 01/27/2023 Assessment & Plan (05/17/2024 5:54 PM EST): Blood pressure 158/80. This is suboptimal control. Suspect it was due to stopping the metoprolol. Plan: Increase lisinopril from 10 mg to 20 mg daily. Increase propranolol to 40 mg twice daily. Short follow-up in 1 months to evaluate blood pressure and heart rate Assessment & Plan (04/05/2024 2:20 PM EDT): 124/62. Well-controlled. She has been on lisinopril 10 mg and metoprolol succinate 12.5 mg daily for blood pressure control. We are stopping the metoprolol and increasing her propranolol due to tremor Follow-up blood pressure and heart rate in 1 month Assessment & Plan (09/15/2023 4:42 PM EDT): Blood pressure today 130/78. This is well-controlled. She is to continue blood pressure regimen of lisinopril 10 mg daily and metoprolol succinate 12.5 mg daily. Assessment & Plan (04/21/2023 5:31 PM EDT): She has been off of her lisinopril 10 mg since her last visit. She reports she is checking blood pressure at home and its been running systolic blood pressure 139 to systolic blood pressure 160. We discussed that low blood pressure was not causing her dizziness. She reports no change in dizziness symptoms off lisinopril. Plan: Resume lisinopril 10 mg daily and continue metoprolol succinate 25 mg half dose daily. Assessment & Plan (01/31/2023 8:18 AM EDT): Blood pressure reading today 124/62. She is currently on lisinopril 10 mg and metoprolol succinate XL 25 mg half a dose daily. Suspecting her dizziness may be related to hypotension. We will hold her lisinopril 10 mg and have her log her blood pressure and heart rate daily and have a short follow-up. JULIA (obstructive sleep apnea) 01/27/2023 Dizziness 01/27/2023 Assessment & Plan (08/04/2023 4:47 PM EST): Patient reports that she has had dizziness for more than 10 years. She has seen a neurologist and has no answer for her dizziness. She has completed evaluation with MRI of the brain. Known history of mild bilateral carotid stenosis. She did not have follow-up in 3 years so we recheck that at the office visit earlier today. Preliminary results reviewed with patient showing no significant carotid stenosis less than 50%. This is mild at this is stable. Discussed with patient this is not the cause of her dizziness. Assessment & Plan (04/21/2023 5:33 PM EDT): Trial off lisinopril and dizziness did not change. She reports today that she has had dizziness for more than 10 years. She reports that she has seen to neurologist and has no answer for the dizziness. She has seen a neurologist in [facility] and she is seeing the neurologist at [facility]. In fact she has had an MRI of the brain at [facility] this year. She has a history of mild bilateral carotid stenosis. No follow-up in 3 years. I will recheck the carotids as precautionary measures. Assessment & Plan (01/31/2023 8:17 AM EDT): She has a persistent complaint of dizziness.She reports is worse when she first gets up of the morning. No change with head movement. Suspect that this may be related to hypotension. Plan: Hold her lisinopril 10 mg, daily blood pressure and heart rate checks, bring blood pressure log back to next follow-up visit. Short follow-up visit to reevaluate blood pressure and the complaint of dizziness. Nonrheumatic mitral valve regurgitation 01/28/20 Assessment & Plan (04/05/2024 2:20 PM EDT): Known history of moderate mitral valve regurgitation Last echo April 2023 Plan: Follow-up echo for moderate mitral regurg Assessment & Plan (04/21/2023 5:30 PM EDT): She completed an echocardiogram today for follow-up of known moderate mitral valve regurgitation. Echo results: Left ventricular systolic function is normal. Left ventricular ejection fraction appears to be 61 - 65%. Left ventricular diastolic function was normal. The left atrial cavity is mildly dilated. Moderate mitral valve regurgitation is present. Estimated right ventricular systolic pressure from tricuspid regurgitation is normal (<35 mmHg). Moderate mitral valve regurgitation is stable. Assessment & Plan (01/31/2023 8:15 AM EDT): Moderate mitral regurg on ECHO 2020 and no recent follow up . Plan ECHO Resolved Problems Problem Noted Date Diagnosed Date Resolved Date Thyroid nodule 08/04/2023 09/15/2023 Assessment & Plan (08/04/2023 4:39 PM EST): Noted thyroid nodule on carotid duplex. Patient reports that she has no known history of thyroid nodule. Patient had recent TSH labs checked with PCP noted 1.86 within normal limits. Plan: Refer to ENT Dr. Maddison Nguyen for evaluation and treatment of thyroid nodule seen on carotid duplex. Encounters Date Type Department Care Team Description 01/08/2025 Telephone [facility] [place] [phone] Sweetie Guerrero APRN K. TIPTON - TRANSFER OF CARE 12/28/2024 Refill [facility] [place] [phone] Sweetie Guerrero APRN Med Refill 12/19/2024 Refill [facility] [place] [phone] Sweetie Guerrero APRN Med Refill from Last 3 Months Family History Relation Name Status Comments Father Mother Social History Tobacco Use Types Packs/Day Years Used Date Smoking Tobacco: Every Day Cigarettes 0.5 15 Passive Smoke Exposure: Current Smokeless Tobacco: Never Tobacco Cessation:Ready to Q uit: Not Asked; Counseling Given: Not Answered Alcohol Use Standard Drinks/Week Comments Yes 0 (1 standard drink = 0.6 oz pur e alcohol) Rarely Comments Unknown Sex and Gender Information Value Date Recorded Sex Assigned at Not on file Legal Sex Female 10:35 AM EST Gender Identity Not on file Sexual Orientation Not on file Last Filed Vital Signs Vital Sign Reading Time Taken Comments Blood Pressure 158/80 05/17/2024 12:55 PM EST Pulse 62 05/17/2024 12:55 PM EST Temperature - - Respiratory Rate 18 05/17/2024 12:55 PM EST Oxygen Saturation 98% 05/17/2024 12:55 PM EST Inhaled Oxygen Concentration - - Weight 96.8 kg (213 lb 4.8 oz) 05/17/2024 12:55 PM EST Height 170.2 cm (5' 7.01 ) 05/17/2024 12:[address] Body Mass Index 33.4 05/17/2024 12:55 PM EST Plan of Treatment Health Maintenance Due Date Last Done Comments DXA SCAN 1950 TDAP/TD VACCINES (1 - Tdap) 1969 MAMMOGRAM 1990 COLON CANCER SCREENING 5 YEA R SIGMOIDOSCOPY 10/27/1995 COLONOSCOPY 10/27/1995 CT COLONOGRAPHY 10/27/1995 FECAL OCCULT BLOOD TEST 10/27/1995 FIT Testing (1 year) 10/27/1995 ZOSTER VACCINE (1 of 2) 2000 COLOGUARD 09/25/2021 09/25/2018 COLORECTAL CANCER SCREENING 09/25/2021 ANNUAL WELLNESS VISIT 01/27/2023 HEPATITIS C SCREENING 01/27/2023 COVID-19 Vaccine (2023-2 5 season) 2024 06/19/2021, 09/11/2020 INFLUENZA VACCINE 04/03/2025 05/08/2024, , 06/01/2021, Additional history exists Pneumococcal Vaccine 50+ Completed 04/05/2017, 03/06 Insurance [employer] MEDICARE [facility] Care Teams Ship Steward Relationship Specialty Start Date End Date Asael Johnson DO [address] [place] [id number] PCP - General Internal Medicine 05/22/24
--- OUTSIDE RECORDS SUMMARY | 2025-01-31 11:31 | XMS_ITS | Encounter Summary ---
Author Organization [employer] ([place], [place], [place], [place]) Address [address] [place] [address] Care Team Providers Care Surgery Consultant Name Role Phone Unavailable Primary Care Provider Unavailabl e Encounter Details Date Type Department Care Team (Late st Contact Info) Description 07/16/2021 Transcribed Document [facility] [address] [place] [address] ProviderMckenzie MD [address] [place] [address] Social History Tobacco Use Types [...] Mckenzie Leija MD - 07/16/2021 3:34 PM RESEARCH QUALITY ASSURANCE ANALYST Patient Education Materials Follows: Radial Site Care [...] these instructions at home: Medicines ??? Take jocv-gxn-xqqkplw and prescription medicines only as told by your health care provider. Insertion site care ??? Follow instructions from your health care provider about how to take care of your insertion site. Make sure you: ? Wash your hands with soap and water before you change your bandage (dressing). If soap and water are not available, use hand tattoo designer. ? Change your dressing as told by [...] provider. Document Revised: 07/26/2018 Document Reviewed: 07/26/2018 [employer] Patient Education ? 2020 [employer]. Radiology Coronary Angiogram A coronary angiogram is [...] including vitamins, herbs, eye drops, creams, and hlhy-jmg-dplmvrw medicines. ??? Any problems you or family [...] do not normally take it. ??? Taking oycz-oxn-sdnfyad medicines, vitamins, herbs, and supplements. General instructions [...] provider. Document Revised: 01/10/2020 Document Reviewed: 01/10/2020 [employer] Patient Education ? 2020 [employer]. documented in this encounter Plan of Treatment Not on file documented as of this encounter Visit Diagnoses Not on filedocumented in this encounter
--- OUTSIDE RECORDS SUMMARY | 2025-01-31 11:31 | XMS_ITS | Encounter Summary ---
Author Organization [employer] ([place], [place], [place], [place]) Address [address] [place] [address] Care Team Providers Care Fha Underwriter Name Role Phone Unavailable Primary Care Provider Unavailabl e Encounter Details Date Type Department Care Team (Late st Contact Info) Description 07/16/2021 Transcribed Document [facility] [address] [place] [address] ProviderMckenzie MD [address] [place] [address] Social History Tobacco Use Types [...] Mckenzie Leija MD - 07/16/2021 3:22 PM SECURITIES CLERK DATE OF SERVICE: 07/16/2021 LEFT HEART CATHETERIZATION REPORT INDICATION: Dyspnea equivalent angina anterior ischemia by Lexiscan Cardiolite perfusion study. ADDITIONAL REFERRING PHYSICIAN: [facility]. PROCEDURE: Standard left heart catheterization. TECHNIQUE: A 5/6-Cuban sheath was placed in the right radial [...] Risk factor modification, medical management is recommended. /[id number] Vinny Srinivasan MD SSL/AQ / SSL / MODL /[id number] CC: [facility] Alexia Duckworth M.D. documented in this encounter Plan of Treatment Not on file documented as of this encounter Visit Diagnoses Not on filedocumented in this encounter
--- OUTSIDE RECORDS SUMMARY | 2025-01-31 11:31 | XMS_ITS | Encounter Summary ---
Author Organization [employer] ([place], [place], [place], [place]) Address [address] [place] [address] Care Team Providers Care Client Service Executive Name Role Phone Unavailable Primary Care Provider Unavailabl e Encounter Details Date Type Department Care Team (Late st Contact Info) Description 07/16/2021 Transcribed Document [facility] [place] Family Medicine [address] [place] [address] ProviderMckenzie MD [address] [place] [address] Social History Tobacco Use Types [...] - Historical ProviderMD - 07/16/2021 3:54 PM ACO COORDINATOR Nursing Discharge Summary Entered On: 07/16/2021 15:55 EST Performed On: 07/16/2021 15:54 EST by Maryann Reeves fretted instrument inspector Documentation Discharge Date/Time : 07/16/2021 18:30 EST [...] 07/16/2021 15:54 EST Electronically signed by Bertha [facility] Conversion Infrastructure Technician Cerner at 10/18/2022 6:15 PM CDT documented in this encounter Plan of Treatment Not on file documented as of this encounter Visit Diagnoses Not on filedocumented in this encounter
--- OUTSIDE RECORDS SUMMARY | 2025-01-31 11:31 | XMS_ITS | Encounter Summary ---
Author Organization [facility] Address [address] [place] [address] Care Team Providers Care Health Promotion Officer Name Role Phone Unavailable Primary Care Provider Unavailabl e Encounter Details Date Type Department Care Team (Late st Contact Info) Description 07/19/2022 [facility] [address] [place] [address] Aniyah Hernandez, MAIL SORTER [address] [place] [address] Nontoxic single thyroid nodule (Primary Dx) Social [...] Info) Description 02/12/2025 1:00 PM EDT Consult [facility] [address] [place] [address] Bony London MD [address] [place] [address] documented as of this encounter Visit Diagnoses Diagnosis Nontoxic single thyroid nodule- Primary Nontoxic uninodular goiter documented in this encounter
--- OUTSIDE RECORDS SUMMARY | 2025-01-31 11:31 | XMS_ITS | Encounter Summary ---
Author Organization [employer] ([place], [place], [place], [place]) Address [address] [place] [address] Care Team Providers Care 1St Pressman Name Role Phone Unavailable Primary Care Provider Unavailabl e Encounter Details Date Type Department Care Team (Late st Contact Info) Description 07/16/2021 Transcribed Document [facility] Family Medicine [address] [place] [address] ProviderMckenzie MD [address] [place] [address] Social History Tobacco Use Types [...] Mckenzie Leija MD - 07/16/2021 5:38 PM YARD HOSTLER [facility] [place] [address] KAREN RAY :1950 Visit Time:07/16/2021 [...] these instructions at home: Medicines ??? Take nazi-grc-eltpghx and prescription medicines only as told by your health care provider. Insertion site care ??? Follow instructions from your health care provider about how to take care of your insertion site. Make sure you: ? Wash your hands with soap and water before you change your bandage (dressing). If soap and water are not available, use hand medical payment poster. ? Change your dressing as told by [...] provider. Document Revised: 07/26/2018 Document Reviewed: 07/26/2018 [employer] Patient Education ?? 2020 [employer] Coronary Angiogram A coronary angiogram is [...] including vitamins, herbs, eye drops, creams, and rmev-ywy-prxsgsw medicines. ??? Any problems you or family [...] do not normally take it. ??? Taking hork-bwj-mhvjzrv medicines, vitamins, herbs, and supplements. General instructions [...] provider. Document Revised: 01/10/2020 Document Reviewed: 01/10/2020 [employer] Patient Education ?? 2020 [employer] Emergency Awareness and Preventative Care STROKE [...] Assistance with quitting is available by contacting 1-708-YRKYNOW. This is a free resource providing counseling, [...] was given the opportunity to ask questions. Patient/Transit Planning Director Name: Patient/Transit Planning Director Signature: Relationship to Patient: Clinician/Hospital Transit Planning Director Signature: Date: documented in this encounter Plan of Treatment Not on file documented as of this encounter Visit Diagnoses Not on filedocumented in this encounter
--- OUTSIDE RECORDS SUMMARY | 2025-01-31 11:31 | XMS_ITS | Encounter Summary ---
Author Organization [facility] Address [address] [place] [address] Care Team Providers Care Bag Checker Name Role Phone Asael Johnson Primary Care Provider + Reason for Visit * Reason Onset Date Comments Constantino HERNANDEZ - TRANSFER OF CARE 01/08/2025 Encounter Details Date Type Department Care Team (Late st Contact Info) Description 01/08/2025 Telephone [facility] [address] [place] [address] Sumaya Hernandez, MANAGER AUTO [address] [place] [address] Constantino HERNANDEZ - TRANSFER OF CARE Social History Tobacco Use Types Packs/Day Years [...] encounter Miscellaneous Notes * Telephone Encounter - Keely Staples RegSched Rep - 01/08/2025 10:22 AM EDT Reached out to patient and let her know that we could send her records to [facility] once she signs CAMILA at her appointment 01/17/25. Told patient to have them fax request for records and CAMILA at that time. * Telephone Encounter - Kassie Mccloud RegSched Rep - 01/08/2025 10:05 AM EDT Caller: Perla Merdano Relationship: Self Best call back number: [phone] Who is your current provider: SUMAYA HERNANDEZ Is your current provider offboarding? YES Who would you like your new provider to be: [facility] What are your reasons for transferring care: PATIENT STATES IDA IS OUT OF HER WAY AND SUMAYA HERNANDEZ IS LEAVING. documented in this encounter Plan of Treatment Not on file documented as of this encounter Visit Diagnoses Not on filedocumented in this encounter Care Teams Bag Checker Relationship Specialty Start Date End Date Asael Johnson DO [address] [place] [address] PCP - General Internal Medicine 05/22/24 documented as of this encounter
[2025-01-31] MEDS: SODIUM CHLORIDE 0.9% 10ML SYR (RAD ONLY) 10 ML IV ×2 (13:00)
[2025-01-31] MEDS: ISOTOPE MYOVIEW (PER STUDY) 1 DOSE IV (13:01)
--- NOTE | 2025-01-31 14:30 | CA_ITS ---
APPROVED REPORT EXAM: Comprehensive 2D, Doppler, and color-flow Echocardiogram Neurophysiology Tech: Cally Mccollum RVT Ht: 5 ft 7 in Wt: 208lbs BSA: 2.06 BP: 176/85 mmHg Indications: SHORTNESS OF BREATH 2D Dimensions IVSd 1.54 cm F: 0.6-1.0 LVEF (Visual) 59.40 % PWd 0.76 cm F: 0.6 - 1.0 LA Volume 35.90 mL LVDd 4.81 cm F: 3.9 - 5.3 LA Volume Index 17.43 mL/m2 (M/F) 16-34 LVDs 3.29 cm F: 2.2 - 3.5 M-Mode Dimensions LA Diam 2.95 cm (1.9-4.0) LV Diastology E Decel Time 210 (160-240 msec) E/A Ratio 0.7 Aortic Valve WILLI Index 1.24 cm2/m2 AoV Peak Pedro. 113.0 (50-130 cm/s) AO Peak GR. 5.10 mmHg AO Mean GR. 2.80 (<5 mmHg) AO VTI 24.5 (18-25 cm) WILLI (VTI) 2.62 (2.5-4.5 cm2) Mitral Valve MV E Max Pedro. 52.0 (40-130 cm/s) MV A Velocity 78.0 (40-130 cm/s) E/A Ratio 0.67 MV PHT 62.0 ms Pulmonary Valve PV Peak Velocity 76.0 (50-150 cm/s) Left Ventricle The left ventricle is normal size. Left ventricular systolic function is normal. The left ventricular ejection fraction is within the normal range. There is normal left ventricular wall thickness. There is normal LV segmental wall motion. Transmitral Doppler flow pattern suggests impaired LV relaxation. LVEF is 55% Right Ventricle The right ventricle is normal size. The right ventricular systolic function is normal. Atria The left atrium is mildly dilated. The right atrium size is normal. There is no color Doppler evidence of interatrial shunt. Aortic Valve The aortic valve opens well. There is no hemodynamically significant aortic valvular stenosis. No aortic regurgitation is present. Mitral Valve The mitral valve is normal in structure. No evidence of mitral valve stenosis. Mild to mitral regurgitation is present. Tricuspid Valve The tricuspid valve leaflets are thin and pliable. Trace tricuspid regurgitation. There is insufficient TR jet to estimate RVSP. Pulmonic Valve The pulmonary valve is grossly normal in structure. Trace pulmonic valve regurgitation is present. Great Vessels The aortic root is normal in size. IVC is normal in size and collapses >50% with inspiration. Pericardium There is no pericardial effusion. Other Information Study Quality: Technically Difficult Conclusion Technically difficult study. Normal biventricular systolic function. Mild LA dilatin. Mi mild mitralld MR. Electronically signed by : Elaina Zapata MD 02/01/2025 12:46:41
--- NOTE | 2025-01-31 15:15 | CA_ITS ---
FINAL REPORT TECHNIQUE: Luu scale, color and spectral doppler images of the bilateral carotid arteries were obtained. CLINICAL HISTORY: DIZZINESS COMPARISON: None FINDINGS: Peak systolic velocity in the right internal carotid artery is 59 cm/sec. The internal carotid to common carotid artery ratio is 0.75. There is no significant carotid artery stenosis and mild plaque formation. The right vertebral artery is normal in direction. Peak systolic velocity in the left internal carotid artery is 92 cm/sec. The internal carotid to common carotid artery ratio is 1.15. There is no significant carotid artery stenosis and mild plaque formation. The left vertebral artery is normal in direction. IMPRESSION: No ultrasound evidence of hemodynamically significant carotid artery stenosis. Normal peak systolic velocities and normal internal to common carotid artery ratios bilaterally. Reviewed, Interpreted and Dictated by Bri Owusu MD Transcribed by Rose Juarez Authenticated and [facility]
== END 2025-01-31 23:59 | disposition home or self-care (01) ==
LOC: RAD 11:29
PROVIDERS: PCP Internal Medicine; Visit Provider Nurse Practitioner Family
DX: I34.0 Nonrheumatic mitral (valve) insufficiency (principal); I11.9 Hypertensive heart disease without heart failure; R94.39 Abnormal result of other cardiovascular function study; R94.31 Abnormal electrocardiogram [ECG] [EKG]; E78.49 Other hyperlipidemia; I25.10 Atherosclerotic heart disease of native coronary artery without angina pectoris
CPT/HCPCS: 78452; 93016; 93017; 93018; 93306; 93880; A9502; J2785

== ENCOUNTER 2025-02-12 12:53 | Outpatient (CLI) | payer MEDICARE, OTHER, SELFPAY ==
--- OUTSIDE RECORDS SUMMARY | 2025-02-12 12:56 | XMS_ITS | Encounter Summary ---
Author Organization [employer] ([place], [place], [place], [place]) Address [address] [place] [address] Care Team Providers Care Anthropology Professor Name Role Phone Unavailable Primary Care Provider Unavailabl e Encounter Details Date Type Department Care Team (Late st Contact Info) Description 07/16/2021 Transcribed Document [facility] [place] [address] [place] [address] ProviderMckenzie MD [address] [place] [address] Social History Tobacco Use Types [...] Mckenzie Leija MD - 07/16/2021 3:22 PM IRON GUARDRAIL INSTALLER DATE OF SERVICE: 07/16/2021 LEFT HEART CATHETERIZATION REPORT INDICATION: Dyspnea equivalent angina anterior ischemia by Lexiscan Cardiolite perfusion study. ADDITIONAL REFERRING PHYSICIAN: [facility]. PROCEDURE: Standard left heart catheterization. TECHNIQUE: A 5/6-Vietnamese sheath was placed in the right radial [...] Risk factor modification, medical management is recommended. /[id number] Vinny Srinivasan MD SSL/AQ / SSL / MODL /[id number] CC: [facility] Alexia Duckworth M.D. documented in this encounter Plan of Treatment Not on file documented as of this encounter Visit Diagnoses Not on filedocumented in this encounter
--- OUTSIDE RECORDS SUMMARY | 2025-02-12 12:56 | XMS_ITS | Encounter Summary ---
Author Organization Healthcare Address [address] [place] [address] Care Team Providers Care Cardiac Cath Rn Name Role Phone Pcp, No Primary Care Provider Unavailabl e Encounter Details Date Type Department Care Team (Late st Contact Info) Description 07/19/2022 Community [facility] [address] [place] [address] Aniyah Hernandez, SURG TECH [address] [place] [address] Nontoxic single thyroid nodule (Primary Dx) Social [...] Info) Description 02/12/2025 1:00 PM EDT Consult [facility] [address] [place] [address] Yann Brown MD [address] [place] [address] documented as of this encounter Visit Diagnoses Diagnosis Nontoxic single thyroid nodule- Primary Nontoxic uninodular goiter documented in this encounter Care Teams Cardiac Cath Rn Relationship Specialty Start Date End Date Pcp, No [address] [place] [address] PCP - General Family Medicine 02/04/25 documented as of this encounter
--- OUTSIDE RECORDS SUMMARY | 2025-02-12 12:56 | XMS_ITS | Encounter Summary ---
Author Organization [employer] ([place], [place], [place], [place]) Address [address] [place] [address] Care Team Providers Care Well Tester Name Role Phone Unavailable Primary Care Provider Unavailabl e Encounter Details Date Type Department Care Team (Late st Contact Info) Description 07/16/2021 Transcribed Document [facility] [place] Family Medicine [address] [place] [address] ProviderMckenzie MD [address] [place] [address] Social History Tobacco Use Types [...] Mckenzie Leija MD - 07/16/2021 11:58 AM AZURE DEVELOPER Pre Procedure Adult Entered On: 07/16/2021 12:02 EST Performed On: 07/16/2021 11:58 EST by Maryann Reeves RN Height and Weight, Clinical Dosing Height Source : Stated Height Entry Format : [place] Height, Feet : 5 ft(Converted to: 152 cm, 60 Inch) Height, Inches : 7 Inch(Converted to: 0 ft 7 Inch, 17.78 cm) Clinical Height : 170.18 cm Weight Source : Standing scale Weight Entry Format : [place] Clinical Dosing Weight : 79.09 kg Weight, Pounds : 174 lb Body Surface Area (BSA) : 1.91 m2 Body Mass Index : 27.3 kg/m2 (HI) Diamond Body Weight : 61 kg Maryann Reeves [...] Maryann Reeves RN - 07/16/2021 11:58 EST [place] Suicide Severity Rating Scale (C-SSRS) CSSRS Past [...] Vargas Emergency Contact #1 Phone Number : [phone] Emergency Contact #1 Relationship : Daughter Emergency Contact #2 : x Emergency Contact #2 Phone Number : x Emergency Contact #2 Relationship : x Primary Language : Panamanian Communication Barrier : None Dredge Operator Supervisor Needed : No Maryann Reeves RN - [...] Scale Risk Level : 25-45 Medium Risk Orondo Fall Interventions : Adequate lighting, Assistive devices [...]
--- OUTSIDE RECORDS SUMMARY | 2025-02-12 12:56 | XMS_ITS | Clinical Summary ---
Author Organization [facility] Address [address] [place] [address] Care Team Providers Care Fresh Foods Cake Decorator Name Role Phone Asael Johnson Bruno Primary Care Provider + Allergies Active Allergy Reactions Criticality Noted Date Comments Penicillins Other (See Comments) Low 05/17/2022 Patient gets the [employer] Medications clonazePAM (KlonoPIN) 0.5 MG tablet Take 0.5 tablets by mouth 2 (Two) Times a Day As Needed. 3 Active Ingrezza 60 MG capsule Take 1 capsule by mouth Daily. 4 Active potassium chloride 10 MEQ CR tabletIndicatio ns:Bilateral leg edema Take 1 tablet by mouth 3 (Three) Times a Week if Needed (take with Lasix). 60 tablet 1 4 Active albuterol sulfate HFA 108 (90 Base) MCG/ACT inhaler Inhale 2 puffs Every 4 (Four) Hours As Needed for Wheezing. Active Cholecalciferol 25 MCG (1000 UT) tablet Take 1 tablet by mouth Daily. Active Umeclidinium-Vi lanterol (Anoro Ellipta) 62.5-25 MCG/ACT aerosol powder inhaler Inhale 1 puff Daily. Active ipratropium (ATROVENT) 0.02 % nebulizer solution Take 2.5 mL by nebulization 4 (Four) Times a Day. Active propranolol (INDERAL) 40 MG tabletIndicatio ns:Primary hypertension,Tr emor Take 1 tablet by mouth 2 (Two) Times a Day. 60 tablet 1 4 Active atorvastatin (LIPITOR) 20 MG tablet TAKE 1 TABLET BY MOUTH DAILY 90 tablet 5 Active lisinopril (PRINIVIL,ZESTR IL) 10 MG tablet Take 1 tablet by mouth Daily. 30 tablet 5 Active Active Problems Problem Noted Date Diagnosed Date [...] she has seen neurologist Dr. Serrano at [facility] in [facility]. She reports that she was on a [...] known disease. Coronary artery disease invo lving [place] coronary artery of [place]ick heart without angina pectoris 01/27/2023 Assessment & Plan (04/05/2024 2:22 PM EDT): Known history of mild coronary artery disease. Symptoms are stable. I suspect her shortness of breath is related to her COPD asthma and continued tobacco use. She has a credit balance specialist Dr. Knutson at [facility] Plan: Continued medical management of statin, beta-mark and LUDMILA Noted that her beta-mark is being adjusted from metoprolol to propranolol due to coexisting tremor Assessment & Plan (08/04/2023 4:36 PM EST): Known history of mild CAD. Symptoms are stable. I suspect that her shortness of air is related to her COPD and continued tobacco use. She has a credit balance specialist and she has scheduled follow-up with him. Plan: Continue medical management of statin, beta-mark and LUDMILA. Assessment & Plan (04/21/2023 5:34 PM EDT): Known history of mild CAD. Symptoms are stable. I suspect her shortness of air is related to her COPD and continued tobacco use. She has a credit balance specialist and she is encouraged to follow-up [...] dizziness. She has seen a neurologist in [facility] and she is seeing the neurologist at [facility]. In fact she has had an MRI of the brain at [facility] this year. She has a history [...] Type Department Care Team Description 01/08/2025 Telephone [facility] [address] [place] [address] Sweetie Guerrero APRN K. ALVADA - TRANSFER OF CARE 12/28/2024 Refill [facility] [address] [place] [address] Sweeite Guerrero APRN Med Refill 12/19/2024 Refill [facility] [address] [place] [address] Sweetie Guerrero APRN Med Refill from Last [...] 01/27/2023 HEPATITIS C SCREENING 01/27/2023 COVID-19 Vaccine ( - 2023-2 5 season) 2024 06/19/2021, 09/11/2020 INFLUENZA VACCINE 04/03/2025 05/08/2024, , 06/01/2021, Additional history exists Pneumococcal Vaccine 50+ Completed 04/05/2017, 03/06 Insurance [employer]IC[employer] Member Subscriber Plan / Payer (Ef fective 2015-Present) Name:Perla Medrano Member ID:[id number] Relation to Subscriber:Self Name:Perla Medrano Subscriber ID:[id number] Payer ID:[id number] Group ID:Not on file Type:Not on file Address: [id number] Care Teams Fresh Foods Cake Decorator Relationship Specialty Start Date End Date Asael Johnson DO [address] [facility] [address] [place] [address] PCP - General Internal Medicine 05/22/24
--- OUTSIDE RECORDS SUMMARY | 2025-02-12 12:56 | XMS_ITS | Clinical Summary ---
Author Organization Healthcare Address [address] [place] [address] Care Team Providers Care Seismograph Computer Name Role Phone Pcp, No Primary Care Provider Unavailabl e Social History [...] Info) Description 02/12/2025 1:00 PM EDT Consult [facility] [address], [address] [place] [address] Yann Brown MD [address] [place] [id number] Health Maintenance Due Date Last Done Comments [...] 2000 UKY-Zoster Vaccines (1 of 2) 2000 [id number] Vaccine (3 - season) 2024 06/19/2021, 09/11/2020 [...] age to complete this topic Insurance MEDICARE Care Teams Seismograph Computer Relationship Specialty Start Date End Date Pcp, [place] [address] PCP - General Family Medicine 02/04/25
--- OUTSIDE RECORDS SUMMARY | 2025-02-12 12:56 | XMS_ITS | Encounter Summary ---
Author Organization [employer] ([place], [place], [place], [place]) Address [address] [place] [address] Care Team Providers Care Spray Machine Operator Name Role Phone Unavailable Primary Care Provider Unavailabl e Encounter Details Date Type Department Care Team (Late st Contact Info) Description 07/16/2021 Transcribed Document [facility] [place] Family Medicine [address] [place] [address] ProviderMckenzie MD [address] [place] [address] Social History Tobacco Use Types [...] Mckenzie Leija MD - 07/16/2021 3:34 PM RAG BOILER Patient Education Materials Follows: Radial Site Care [...] these instructions at home: Medicines ??? Take teff-plw-flhfbmf and prescription medicines only as told by your health care provider. Insertion site care ??? Follow instructions from your health care provider about how to take care of your insertion site. Make sure you: ? Wash your hands with soap and water before you change your bandage (dressing). If soap and water are not available, use hand interventional radiology rn. ? Change your dressing as told by [...] provider. Document Revised: 07/26/2018 Document Reviewed: 07/26/2018 [employer] Patient Education ? 2020 [employer]. Radiology Coronary Angiogram A coronary angiogram is [...] including vitamins, herbs, eye drops, creams, and mkzt-nqz-fkekhha medicines. ??? Any problems you or family [...] do not normally take it. ??? Taking yliu-saw-ocywxef medicines, vitamins, herbs, and supplements. General instructions [...] provider. Document Revised: 01/10/2020 Document Reviewed: 01/10/2020 [employer] Patient Education ? 2020 [employer]. documented in this encounter Plan of Treatment Not on file documented as of this encounter Visit Diagnoses Not on filedocumented in this encounter
--- OUTSIDE RECORDS SUMMARY | 2025-02-12 12:56 | XMS_ITS | Clinical Summary ---
Author Organization [employer] ([place], [place], [place], [place]) Address [address] [place] [address] Care Team Providers Care Industrial Energy Engineer Name Role Phone Unavailable Primary Care [...]
--- OUTSIDE RECORDS SUMMARY | 2025-02-12 12:56 | XMS_ITS | Encounter Summary ---
Author Organization [employer] ([place], [place], [place], [place]) Address [address] [place] [address] Care Team Providers Care Truck Hopper Name Role Phone Unavailable Primary Care Provider Unavailabl e Encounter Details Date Type Department Care Team (Late st Contact Info) Description 07/16/2021 Transcribed Document [facility] [place] [address] [place] [address] ProviderMckenzie MD [address] [place] [address] Social History Tobacco Use Types [...] Mckenzie Leija MD - 07/16/2021 5:38 PM TERMITE TREATER HELPER [place] [address] KAREN RAY :1950 Visit Time:07/16/2021 [...] these instructions at home: Medicines ??? Take fcxz-obt-drcxiar and prescription medicines only as told by your health care provider. Insertion site care ??? Follow instructions from your health care provider about how to take care of your insertion site. Make sure you: ? Wash your hands with soap and water before you change your bandage (dressing). If soap and water are not available, use hand automobile spring repairer. ? Change your dressing as told by [...] provider. Document Revised: 07/26/2018 Document Reviewed: 07/26/2018 [employer] Patient Education ?? 2020 [employer] Coronary Angiogram A coronary angiogram is [...] including vitamins, herbs, eye drops, creams, and zbcy-poe-wddvnty medicines. ??? Any problems you or family [...] do not normally take it. ??? Taking xucp-cva-ebadwdw medicines, vitamins, herbs, and supplements. General instructions [...] provider. Document Revised: 01/10/2020 Document Reviewed: 01/10/2020 [employer] Patient Education ?? 2020 [employer] Emergency Awareness and Preventative Care STROKE [...] Assistance with quitting is available by contacting 0-301-CQLJNOW. This is a free resource providing counseling, [...] was given the opportunity to ask questions. Patient/Civil Drafter Name: Patient/Civil Drafter Signature: Relationship to Patient: Clinician/Hospital Civil Drafter Signature: Date: documented in this encounter Plan of Treatment Not on file documented as of this encounter Visit Diagnoses Not on filedocumented in this encounter
--- OUTSIDE RECORDS SUMMARY | 2025-02-12 12:56 | XMS_ITS | Encounter Summary ---
Author Organization [facility] Address [address] [place] [address] Care Team Providers Care Passenger Booking Clerk Name Role Phone Asael Johnson DO Primary Care Provider + Reason for Visit * Reason Comments Med Refill Encounter Details Date Type Department Care Team (Late st Contact Info) Description 12/28/2024 Refill [facility] [address] [place] [id number] Sweetie Guerrero, ADVERTISING COLUMNIST [address] [place] [address] Med Refill Social History Tobacco Use Types [...] to get her through until she sees [facility] 01/17/25. Patient had not heard anything from this request. * Telephone Encounter - Sunday Rivas CMA - 12/28/2024 10:48 AM EDT REQUESTED ROUTINE LABS FROM PCP documented in this encounter Plan of Treatment Not on file documented as of this encounter Visit Diagnoses Not on filedocumented in this encounter Care Teams Passenger Booking Clerk Relationship Specialty Start Date End Date Aasel Johnson DO [address] [place] [address] PCP - General Internal Medicine 05/22/24 documented as of this encounter
--- OUTSIDE RECORDS SUMMARY | 2025-02-12 12:56 | XMS_ITS | Encounter Summary ---
Author Organization [facility] Address [address] [place] [address] Care Team Providers Care Brass Pickler Name Role Phone Asael Johnson DO Primary Care Provider + Reason for Visit * Reason Onset Date Comments Med Refill 02/10/2023 Encounter Details Date Type Department Care Team (Late st Contact Info) Description 02/10/2023 Refill [facility] [address] [place] [address] Sweetie Guerrero, STOCK BROKER [address] [place] [address] Med Refill [...] Medrano Relationship: Self Best call back number: [phone] Requested Prescriptions: Requested Prescriptions Pending Prescriptions Disp Refills atorvastatin (LIPITOR) 40 MG tablet 30 tablet 10 Sig: Take 0.5 tablets by mouth Daily. Pharmacy where request should be sent: [facility] [place] - [address] [facility] [phone] [facility] [phone] FX Last office visit with prescribing clinician: [...] on filedocumented in this encounter Care Teams Brass Pickler Relationship Specialty Start Date End Date Asael Johnson DO [address] [place] [address] PCP - General Internal Medicine 05/22/24 documented as of this encounter
--- OUTSIDE RECORDS SUMMARY | 2025-02-12 12:56 | XMS_ITS | Encounter Summary ---
Author Organization [facility] Address [address] [place] [address] Care Team Providers Care Patternator Name Role Phone Asael Johnson Primary Care Provider + Reason for Visit * Reason Onset Date Comments Constantino HERNANDEZ - TRANSFER OF CARE 01/08/2025 Encounter Details Date Type Department Care Team (Late st Contact Info) Description 01/08/2025 Telephone [facility] [address] [place] [address] Sumaya Hernandez, SENIOR WEB APPLICATIONS DEVELOPER [address] [place] [address] Constantino HERNANDEZ - TRANSFER OF CARE [...] that we could send her records to [facility] once she signs CAMILA at her appointment 01/17/25. Told patient to have them fax request for records and CAMILA at that time. * Telephone Encounter - Kassie Mccloud RegSched Rep - 01/08/2025 10:05 AM EDT Caller: Perla Medrano Relationship: Self Best call back number: [phone] Who is your current provider: SUMAYA HERNANDEZ Is your current provider offboarding? YES Who would you like your new provider to be: [facility] What are your reasons for transferring care: PATIENT STATES IDA IS OUT OF HER WAY AND SUMAYA HERNANDEZ IS LEAVING. documented in this encounter Plan of Treatment Not on file documented as of this encounter Visit Diagnoses Not on filedocumented in this encounter Care Teams Patternator Relationship Specialty Start Date End Date Asael Johnson DO [address] [place] [address] PCP - General Internal Medicine 05/22/24 documented as of this encounter
--- OUTSIDE RECORDS SUMMARY | 2025-02-12 12:56 | XMS_ITS | Encounter Summary ---
Author Organization [employer] ([place], [place], [place], [place]) Address [address] [place] [address] Care Team Providers Care Freight Delivery Driver Name Role Phone Unavailable Primary Care Provider Unavailabl e Encounter Details Date Type Department Care Team (Late st Contact Info) Description 07/16/2021 Transcribed Document [facility] [place] [facility] [place] [address] ProviderMckenzie MD [address] [place] [address] Social History Tobacco Use Types [...] Mckenzie Leija MD - 07/16/2021 11:48 AM CLAIMS COORDINATOR Patient: KAREN RAY Age: 70 years Sex: Female : 1950 Associated Diagnoses: None Author: CARLY SRINIVASAN MD-CAR Basic Information PCP: [facility] Reservoir Engineering Manager: Dr. Duckworth Chief Complaint Exertional Dyspnea, Abnormal Stress History of Present Illness 70 year old female with a hx. of HTN, HLD, Carotid Stenosis, and Tobacco Abuse. The patient reports progressive exertional dyspnea. She describes her breathing as tight . Recent Lexiscan suggest anterior ischemia. Dr. Dorinda Duckworth has referred her for further cardiac evaluation. Patient presents today for [facility] with Dr. Srinivasan. Review of Systems [...] Past Medical History: Active HLD - Hyperlipidemia (603999198) HTN - Hypertension (3741506357) Tobacco abuse ([id number]) PVD - peripheral vascular disease ([id number]) Family History: No family history items have [...] of motion, Normal strength. Integumentary: Warm, Dry, [place]. Neurologic: Alert, Oriented. Psychiatric: Cooperative, Appropriate mood [...] with Dr. Dorinda Duckworth Electronically signed by [facility], [facility] Conversion Towel Sorter Cerner at 10/18/2022 6:15 PM CDT documented in this encounter Plan of Treatment Not on file documented as of this encounter Visit Diagnoses Not on filedocumented in this encounter
--- OUTSIDE RECORDS SUMMARY | 2025-02-12 12:56 | XMS_ITS | Encounter Summary ---
Author Organization [employer] ([place], [place], [place], [place]) Address [address] [place] [address] Care Team Providers Care Assembly Department Supervisor Name Role Phone Unavailable Primary Care Provider Unavailabl e Encounter Details Date Type Department Care Team (Late st Contact Info) Description 07/16/2021 Transcribed Document [facility] [place] Family Medicine [address] [place] [address] ProviderMckenzie MD [address] [place] [address] Social History Tobacco Use Types [...] - Historical ProviderMD - 07/16/2021 3:54 PM LEGAL INTERNSHIP Nursing Discharge Summary Entered On: 07/16/2021 15:55 EST Performed On: 07/16/2021 15:54 EST by Maryann Reeves interviewing clerk Documentation Discharge Date/Time : 07/16/2021 18:30 EST [...] 07/16/2021 15:54 EST Electronically signed by Bertha [facility] Conversion Extrusion Press Supervisor Cerner at 10/18/2022 6:15 PM CDT documented in this encounter Plan of Treatment Not on file documented as of this encounter Visit Diagnoses Not on filedocumented in this encounter
--- OUTSIDE RECORDS SUMMARY | 2025-02-12 12:56 | XMS_ITS | Referral Summary ---
Author Organization [employer] ([place], [place], [place], [place]) Address [address] [place] [address] Care Team Providers Care Materials Recycler Name Role Phone Unavailable Primary Care Provider [...]
--- OUTSIDE RECORDS SUMMARY | 2025-02-12 12:56 | XMS_ITS | Encounter Summary ---
Author Organization [facility] Address [address] [place] [address] Care Team Providers Care Adjunct Instructor In Economics Name Role Phone Asael Johnson DO Primary Care Provider + Reason for Visit * Reason Comments Med Refill Encounter Details Date Type Department Care Team (Late st Contact Info) Description 12/19/2024 Refill [facility] [address] [place] [address] Sweetie Guerrero, ONCOLOGY PHYSICIAN ASSISTANT [address] [place] [address] Med Refill Social History Tobacco Use Types [...] on filedocumented in this encounter Care Teams Adjunct Instructor In Economics Relationship Specialty Start Date End Date Asael Johnson DO [address] [place] [address] PCP - General Internal Medicine 05/22/24 documented as of this encounter
--- NOTE | 2025-02-12 15:00 | CT_ITS ---
FINAL REPORT TECHNIQUE: Axial CT without IV contrast administration. Coronal and sagittal images were obtained and reviewed. This study was performed with techniques to keep radiation doses as low as reasonably achievable, (ALARA). Individualized dose reduction techniques using automated exposure control or adjustment of mA and/or kV according to the patient's size were employed. This study was performed with techniques to keep radiation doses as low as reasonably achievable, (ALARA). Individualized dose reduction techniques using automated exposure control or adjustment of mA and/or kV according to the patient''s size were employed. CLINICAL HISTORY: Lung nodule COMPARISON: CT low-dose 07/05/2024 FINDINGS: No acute lung disease is present. Nodular irregular density in the right lung apex measuring up to 14 mm is unchanged and most compatible with scarring. The left lung is clear. No pleural or pericardial effusion is seen. No adenopathy or mass lesion is present. IMPRESSION: Stable nodular scarring right lung apex. No new abnormality identified. Recommend resumption of LDCT screening. Reviewed, Interpreted and Dictated by Lizbeth Man MD Transcribed by Ro Herndon Authenticated and . [facility]
== END 2025-02-12 23:59 | disposition home or self-care (01) ==
LOC: RT 12:54
PROVIDERS: PCP Internal Medicine; Visit Provider Internal Medicine Pulmonary Disease
DX: J98.4 Other disorders of lung (principal); J44.9 Chronic obstructive pulmonary disease, unspecified; R94.2 Abnormal results of pulmonary function studies; R91.8 Other nonspecific abnormal finding of lung field
CPT/HCPCS: 71250; 94060; 94618; 94726; 94729

== ENCOUNTER 2025-02-28 09:54 | Outpatient (CLI) | payer MEDICARE, OTHER, SELFPAY ==
--- OUTSIDE RECORDS SUMMARY | 2025-02-28 09:59 | XMS_ITS | Encounter Summary ---
Author Organization Healthcare Address [address] [place] [address] Care Team Providers Care Principal Ios Developer Name Role Phone Pcp, No Primary Care Provider Unavailabl e Encounter Details Date Type Department Care Team ([facility] st Contact Info) Description 07/19/2022 Community [facility] [address] [place] [address] Aniyah Hernandez, TRUCKING CONTRACTOR [address] [place] [address] Nontoxic single thyroid nodule (Primary Dx) Social [...] goiter documented in this encounter Care Teams Principal Ios Developer Relationship Specialty Start Date End Date Pcp, No [address] [place] [address] PCP - General Family Medicine 02/04/25 documented as of this encounter
--- OUTSIDE RECORDS SUMMARY | 2025-02-28 09:59 | XMS_ITS | Encounter Summary ---
Author Organization [facility] Address [address] [place] [address] Care Team Providers Care Nurse Transplant Name Role Phone Asael Johnson DO Primary Care Provider + Reason for Visit * Reason Onset Date Comments Med Refill 02/10/2023 Encounter Details Date Type Department Care Team (Late st Contact Info) Description 02/10/2023 Refill [facility] [address] [place] [address] Sweetie Guerrero, OCEAN BIOLOGIST [address] [place] [address] Med Refill [...] Medrano Relationship: Self Best call back number: [phone] Requested Prescriptions: Requested Prescriptions Pending Prescriptions Disp Refills atorvastatin (LIPITOR) 40 MG tablet 30 tablet 10 Sig: Take 0.5 tablets by mouth Daily. Pharmacy where request should be sent: [facility] [place] - [address] [facility] [phone] [facility] [phone] FX Last office visit with prescribing clinician: [...] on filedocumented in this encounter Care Teams Nurse Transplant Relationship Specialty Start Date End Date Asael Johnson DO [address] [place] [address] [place] [address] PCP - General Internal Medicine 05/22/24 documented as of this encounter
--- OUTSIDE RECORDS SUMMARY | 2025-02-28 09:59 | XMS_ITS | Referral Summary ---
Author Organization [employer] ([place], [place], [place], [place]) Address [address] [place] [address] Care Team Providers Care Grounds Manager Name Role Phone Unavailable Primary Care Provider [...]
--- OUTSIDE RECORDS SUMMARY | 2025-02-28 09:59 | XMS_ITS | Encounter Summary ---
Author Organization [facility] Address [address] [place] [address] Care Team Providers Care Property Caretaker Name Role Phone Asael Johnson Primary Care Provider + Reason for Visit * Reason Onset Date Comments Constantino HERNANDEZ - TRANSFER OF CARE 01/08/2025 Encounter Details Date Type Department Care Team (Late st Contact Info) Description 01/08/2025 Telephone [facility] [address] [place] [address] Sumaya Hernandez, CLINICAL BUSINESS ANALYST [address] [place] [address] Constantino HERNANDEZ - TRANSFER OF CARE [...] that we could send her records to [facility] once she signs CAMILA at her appointment 01/17/25. Told patient to have them fax request for records and CAMILA at that time. * Telephone Encounter - Kassie Mccloud RegSched Rep - 01/08/2025 10:05 AM EDT Caller: Perla Medrano Relationship: Self Best call back number: [phone] Who is your current provider: SUMAYA HERNANDEZ Is your current provider offboarding? YES Who would you like your new provider to be: [facility] What are your reasons for transferring care: PATIENT STATES IDA IS OUT OF HER WAY AND SUMAYA HERNANDEZ IS LEAVING. documented in this encounter Plan of Treatment Not on file documented as of this encounter Visit Diagnoses Not on filedocumented in this encounter Care Teams Property Caretaker Relationship Specialty Start Date End Date Asael Johnson DO [address] [place] [address] [place] [address] PCP - General Internal Medicine 05/22/24 documented as of this encounter
--- OUTSIDE RECORDS SUMMARY | 2025-02-28 09:59 | XMS_ITS | Encounter Summary ---
Author Organization [facility] Address [address] [place] [address] Care Team Providers Care Porcelain Finish Sprayer Name Role Phone Asael Johnson DO Primary Care Provider + Reason for Visit * Reason Comments Med Refill Encounter Details Date Type Department Care Team (Late st Contact Info) Description 12/28/2024 Refill [facility] C[facility] [address] [place] [phone] Sweetie Guerrero, ENVIRONMENTAL AUDITOR [address] [place] [address] Med Refill Social History Tobacco Use Types [...] her through until she sees [facility] 01/17/25. Patient had not heard anything from this request. * Telephone Encounter - Sunday Rivas CMA - 12/28/2024 10:48 AM EDT REQUESTED ROUTINE LABS FROM PCP documented in this encounter Plan of Treatment Not on file documented as of this encounter Visit Diagnoses Not on filedocumented in this encounter Care Teams Porcelain Finish Sprayer Relationship Specialty Start Date End Date Asael Johnson DO [address] [place] [address] [place] [address] PCP - General Internal Medicine 05/22/24 documented as of this encounter
--- OUTSIDE RECORDS SUMMARY | 2025-02-28 09:59 | XMS_ITS | Clinical Summary ---
Author Organization [employer] ([place], [place], [place], [place]) Address [address] [place] [address] Care Team Providers Care Tail Edger Name Role Phone Unavailable Primary Care Provider [...]
--- OUTSIDE RECORDS SUMMARY | 2025-02-28 09:59 | XMS_ITS | Clinical Summary ---
Author Organization [facility] Address [address] [place] [address] Care Team Providers Care Digital Sales Representative Name Role Phone Asael Johnson Bruno Primary Care Provider + Allergies Active Allergy Reactions Criticality Noted Date Comments Penicillins Other (See Comments) Low 05/17/2022 Patient gets the Muzzley Medications clonazePAM (KlonoPIN) 0.5 MG tablet Take [...] she has seen neurologist Dr. Serrano at [facility] in [facility]. She reports that she was on a [...] known disease. Coronary artery disease invo lving burns paiute coronary artery of burns paiute heart without angina pectoris 01/27/2023 Assessment & Plan (04/05/2024 2:22 PM EDT): Known history of mild coronary artery disease. Symptoms are stable. I suspect her shortness of breath is related to her COPD asthma and continued tobacco use. She has a wage and salary specialist Dr. Knutson at [facility] Plan: Continued medical management of statin, beta-mark and LUDMILA Noted that her beta-mark is being adjusted from metoprolol to propranolol due to coexisting tremor Assessment & Plan (08/04/2023 4:36 PM EST): Known history of mild CAD. Symptoms are stable. I suspect that her shortness of air is related to her COPD and continued tobacco use. She has a wage and salary specialist and she has scheduled follow-up with him. Plan: Continue medical management of statin, beta-mark and LUDMILA. Assessment & Plan (04/21/2023 5:34 PM EDT): Known history of mild CAD. Symptoms are stable. I suspect her shortness of air is related to her COPD and continued tobacco use. She has a wage and salary specialist and she is encouraged to follow-up [...] dizziness. She has seen a neurologist in [facility] and she is seeing the neurologist at [facility]. In fact she has had an MRI of the brain at [facility] this year. She has a history [...] Type Department Care Team Description 01/08/2025 Telephone [facility] [address] [place] [phone] Sweetie Guerrero APRN K. DURH[place] - TRANSFER OF CARE 12/28/2024 Refill [facility] [address] [place] [phone] Sweetie Guerrero APRN Med Refill 12/19/2024 Refill [facility] [address] [place] [phone] Sweetie Guerrero APRN Med Refill from Last [...] Payer (Ef fective 2015-Present) Name:Perla Medrano Member ID:[id number] Relation to Subscriber:Self Name:Perla Medrano Subscriber ID:[id number] Payer ID:[id number] Group ID:Not on file Type:Not on file Address: [address] Care Teams Digital Sales Representative Relationship Specialty Start Date End Date Asael Johnson DO [address] [facility] [address] [place] [address] PCP - General Internal Medicine 05/22/24
--- OUTSIDE RECORDS SUMMARY | 2025-02-28 09:59 | XMS_ITS | Encounter Summary ---
Author Organization [employer] ([place], [place], [place], [place]) Address [address] [place] [address] Care Team Providers Care Manager Bar Name Role Phone Unavailable Primary Care Provider Unavailabl e Encounter Details Date Type Department Care Team (Late st Contact Info) Description 07/16/2021 Transcribed Document [facility] [address] [place] [address] ProviderMckenzie MD [address] [place] [address] Social History Tobacco Use Types [...] Mckenzie Leija MD - 07/16/2021 3:22 PM BROOMCORN SCRAPER DATE OF SERVICE: 07/16/2021 LEFT HEART CATHETERIZATION REPORT INDICATION: Dyspnea equivalent angina anterior ischemia by Lexiscan Cardiolite perfusion study. ADDITIONAL REFERRING PHYSICIAN: [facility]. PROCEDURE: Standard left heart catheterization. TECHNIQUE: A 5/6-Czech sheath was placed in the right radial [...] Risk factor modification, medical management is recommended. /[id number] Vinny Srinivasan MD SSL/AQ / SSL / MODL /[id number] CC: [facility] Alexia Duckworth M.D. documented in this encounter Plan of Treatment Not on file documented as of this encounter Visit Diagnoses Not on filedocumented in this encounter
--- OUTSIDE RECORDS SUMMARY | 2025-02-28 09:59 | XMS_ITS | Clinical Summary ---
Author Organization Healthcare Address [facility] [place] [address] Care Team Providers Care Material Specialist Name Role Phone Pcp, No Primary Care Provider Unavailabl e Social History Tobacco Use Types Packs/Day Years Used Date Smoking Tobacco: Never Assessed Comments Unknown Sex and Gender Information Value Date Recorded Sex Assigned at Female 07/19/2022 10:53 AM EST Legal Sex Female 10:44 AM EST Gender Identity Female 07/19/2022 10:53 AM EST Sexual Orientation Not on file Plan of Treatment Health Maintenance Due Date Last Done Comments [facility]-Bone Density Scan 1950 [facility]-Depression Screening 1950 [facility]-Infant/Child/Adol SDOH Screenings 1950 [facility]- SDOH Screenings 1968 [facility]-Adult SDOH Screenings 1968 [facility]-DTaP,Tdap,and Td Vaccines (1 - Tdap) 1969 CT Colonography 10/27/1995 Colonoscopy 10/27/1995 FIT-DNA 10/27/1995 FIT 10/27/1995 FOBT 10/27/1995 Sigmoidoscopy 10/27/1995 [facility]-Colorectal Cancer Screening 10/27/1995 [facility]-Zoster Vaccines (1 of 2) 2000 ILF-MGMKG-57 Vaccine (3 - season) 2024 06/19/2021, 09/11/2020 [...] complete this topic Insurance MEDICARE Care Teams Material Specialist Relationship Specialty Start Date End Date Jacob, Bety Mej[address] [place] [address] PCP - General Family Medicine 02/04/25
--- OUTSIDE RECORDS SUMMARY | 2025-02-28 09:59 | XMS_ITS | Encounter Summary ---
Author Organization [employer] ([place], [place], [place], [place]) Address [address] [place] [address] Care Team Providers Care Volleyball Referee Name Role Phone Unavailable Primary Care Provider Unavailabl e Encounter Details Date Type Department Care Team (Late st Contact Info) Description 07/16/2021 Transcribed Document [facility] [place] Family Medicine [address] [place] [address] ProviderMckenzie MD [address] [place] [address] Social History Tobacco Use Types [...] Mckenzie Leija MD - 07/16/2021 5:38 PM CRIMINAL JUSTICE TEACHER [facility] [place] [address] KAREN RAY :1950 Visit Time:07/16/2021 [...] these instructions at home: Medicines ??? Take haht-hih-rdqbxfq and prescription medicines only as told by your health care provider. Insertion site care ??? Follow instructions from your health care provider about how to take care of your insertion site. Make sure you: ? Wash your hands with soap and water before you change your bandage (dressing). If soap and water are not available, use hand dynamometer tester engine. ? Change your dressing as told by [...] provider. Document Revised: 07/26/2018 Document Reviewed: 07/26/2018 [email or web address] Patient Education ?? 2020 [employer] Coronary Angiogram A coronary angiogram is [...] including vitamins, herbs, eye drops, creams, and ekie-oxd-tyfvvsz medicines. ??? Any problems you or family [...] do not normally take it. ??? Taking rzgm-ela-twdwmcw medicines, vitamins, herbs, and supplements. General instructions [...] provider. Document Revised: 01/10/2020 Document Reviewed: 01/10/2020 [employer] Patient Education ?? 2020 [employer] Emergency Awareness and Preventative Care STROKE [...] Assistance with quitting is available by contacting 8-348-NFXJNOW. This is a free resource providing counseling, [...] was given the opportunity to ask questions. Patient/Manager Labor Relations Name: Patient/Manager Labor Relations Signature: Relationship to Patient: Clinician/Hospital Manager Labor Relations Signature: Date: documented in this encounter Plan of Treatment Not on file documented as of this encounter Visit Diagnoses Not on filedocumented in this encounter
--- OUTSIDE RECORDS SUMMARY | 2025-02-28 09:59 | XMS_ITS | Encounter Summary ---
Author Organization [employer] ([place], [place], [place], [place]) Address [address] [place] [address] Care Team Providers Care Guinea Pig Breeder Name Role Phone Unavailable Primary Care Provider Unavailabl e Encounter Details Date Type Department Care Team (Late st Contact Info) Description 07/16/2021 Transcribed Document [facility] [place] Family Medicine [facility] [place] [address] ProviderMckenzie MD [address] [place] [address] Social History Tobacco Use Types [...] Mckenzie Leija MD - 07/16/2021 11:48 AM VACUUM CLEANER OPERATOR Patient: KAREN RAY Age: 70 years Sex: Female : 1950 Associated Diagnoses: None Author: CARLY SRINIVASAN MD-CAR Basic Information PCP: [facility] Cnc Mechanic: Dr. Duckworth Chief Complaint Exertional Dyspnea, Abnormal Stress History of Present Illness 70 year old female with a hx. of HTN, HLD, Carotid Stenosis, and Tobacco Abuse. The patient reports progressive exertional dyspnea. She describes her breathing as tight . Recent Lexiscan suggest anterior ischemia. Dr. Dorinda Duckworth has referred her for further cardiac evaluation. Patient presents today for [facility] with Dr. Srinivasan. Review of Systems [...] Past Medical History: Active HLD - Hyperlipidemia (933659019) HTN - Hypertension (0628330062) Tobacco abuse ([id number]) PVD - peripheral vascular disease (4340497508) Family History: No family history items have [...] of motion, Normal strength. Integumentary: Warm, Dry, [place]. Neurologic: Alert, Oriented. Psychiatric: Cooperative, Appropriate mood [...] with Dr. Dorinda Duckworth Electronically signed by [facility], [facility] Conversion Crystal Mounter Cerner at 10/18/2022 6:15 PM CDT documented in this encounter Plan of Treatment Not on file documented as of this encounter Visit Diagnoses Not on filedocumented in this encounter
--- OUTSIDE RECORDS SUMMARY | 2025-02-28 09:59 | XMS_ITS | Encounter Summary ---
Author Organization [employer] ([place], [place], [place], [place]) Address [address] [place] [address] Care Team Providers Care New Account Interviewer Name Role Phone Unavailable Primary Care Provider Unavailabl e Encounter Details Date Type Department Care Team (Late st Contact Info) Description 07/16/[address] [facility] [place] [address] [place] [address] ProviderMckenzie MD [address] [place] [address] Social History Tobacco Use Types [...] Mckenzie Leija MD - 07/16/2021 3:34 PM AVIATION ELECTRICIAN Patient Education Materials Follows: Radial Site Care [...] these instructions at home: Medicines ??? Take kzql-wka-rnohjto and prescription medicines only as told by your health care provider. Insertion site care ??? Follow instructions from your health care provider about how to take care of your insertion site. Make sure you: ? Wash your hands with soap and water before you change your bandage (dressing). If soap and water are not available, use hand tooth cutter. ? Change your dressing as told by [...] provider. Document Revised: 07/26/2018 Document Reviewed: 07/26/2018 [employer] Patient Education ? 2020 [employer]. Radiology Coronary Angiogram A coronary angiogram is [...] including vitamins, herbs, eye drops, creams, and mwcp-ztg-icmeflt medicines. ??? Any problems you or family [...] do not normally take it. ??? Taking vibm-tip-kjroogv medicines, vitamins, herbs, and supplements. General instructions [...] provider. Document Revised: 01/10/2020 Document Reviewed: 01/10/2020 [employer] Patient Education ? 2020 [employer]. documented in this encounter Plan of Treatment Not on file documented as of this encounter Visit Diagnoses Not on filedocumented in this encounter
--- OUTSIDE RECORDS SUMMARY | 2025-02-28 09:59 | XMS_ITS | Encounter Summary ---
Author Organization [employer] ([place], [place], [place], [place]) Address [address] [place] [address] Care Team Providers Care Receiving Weigher Name Role Phone Unavailable Primary Care Provider Unavailabl e Encounter Details Date Type Department Care Team (Late st Contact Info) Description 07/16/2021 Transcribed Document [facility] [place] [address] [place] [address] ProviderMckenzie MD [address] [place] [address] Social History Tobacco Use Types [...] - Historical ProviderMD - 07/16/2021 3:54 PM LINE LEADER Nursing Discharge Summary Entered On: 07/16/2021 15:55 EST Performed On: 07/16/2021 15:54 EST by Maryann Reeves video photographer Documentation Discharge Date/Time : 07/16/2021 18:30 EST [...] 07/16/2021 15:54 EST Electronically signed by Bertha [facility] Conversion Gps Navigation Installer Cerner at 10/18/2022 6:15 PM CDT documented in this encounter Plan of Treatment Not on file documented as of this encounter Visit Diagnoses Not on filedocumented in this encounter
--- OUTSIDE RECORDS SUMMARY | 2025-02-28 09:59 | XMS_ITS | Encounter Summary ---
Author Organization [facility] ([place], [place], [place], [place]) Address [address] [place] [address] Care Team Providers Care Radio Equipment Installer Name Role Phone Unavailable Primary Care Provider Unavailabl e Encounter Details Date Type Department Care Team (Late st Contact Info) Description 07/16/2021 Transcribed Document [facility] [place] [address] [place] [address] ProviderMckenzie MD [address] [place] [address] Social History Tobacco Use Types [...] Mckenzie Leija MD - 07/16/2021 11:58 AM MATH PROFESSOR Pre Procedure Adult Entered On: 07/16/2021 12:02 EST Performed On: 07/16/2021 11:58 EST by Maryann Reeves RN Height and Weight, Clinical Dosing Height Source : Stated Height Entry Format : [place] Height, Feet : 5 ft(Converted to: 152 cm, 60 Inch) Height, Inches : 7 Inch(Converted to: 0 ft 7 Inch, 17.78 cm) Clinical Height : 170.18 cm Weight Source : Standing scale Weight Entry Format : [place] Clinical Dosing Weight : 79.09 kg Weight, Pounds : 174 lb Body Surface Area (BSA) : 1.91 m2 Body Mass Index : 27.3 kg/m2 (HI) Jeannette Body Weight : 61 kg Maryann Reeves [...] Maryann Reeves RN - 07/16/2021 11:58 EST [place] Suicide Severity Rating Scale (C-SSRS) CSSRS Past [...] Vargas Emergency Contact #1 Phone Number : [phone] Emergency Contact #1 Relationship : Daughter Emergency Contact #2 : x Emergency Contact #2 Phone Number : x Emergency Contact #2 Relationship : x Primary Language : [place] Communication Barrier : None Electrical Subcontractor Needed : No Maryann Reeves RN - [...] Scale Risk Level : 25-45 Medium Risk [place] Fall Interventions : Adequate lighting, Assistive devices [...]
--- NOTE | 2025-02-28 10:00 | CT_ITS ---
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 A noncontrast coronary calcium scan was performed. A CT attenuation threshold of 130 Hounsfield units (HU) was used for the detection of calcium in contiguous voxels of 1 sq mm in area to be counted as individual lesions. Bolus tracking in the ascending aorta with a threshold of 180 HU was performed. Immediately afterwards, ECG synchronized cardiac CT was then performed from the cardiac base to apex using retrospective gating with ECG tube current modulation. A total of 85 mL of Isovue 370 mg/mL contrast medium was administered at 5 mL/sec followed by a saline flush using a biphasic injection protocol. A tube voltage of 120 KVp was used. The average heart rate at the time of acquisition was 64 bpm and regular. Image Reconstruction Transaxial images were reconstructed at 0.67 mm slide thickness. Data was reviewed interactively on an advanced workstation capable of 2 and 3-dimensional displays in all conventional reconstruction formats, including multiplanar reformations, maximum intensity projections, curved multiplanar reformations, and volume rendered reconstructions. When applicable, selected routine images describing the relevant coronary anatomy and pathology were saved and sent to PACS. Complications None Technical Quality Overall image quality was suboptimal due to significant motion and blurring artifact. Coronary artery opacification was suboptimal. Total DLP (Dose-Length Product) is 2659.1 mGy-cm. The reported value represents the total of one or more individual components during the CT acquisition of this date and at this time, and as such, the same value may appear in more than one CT report depending on the interpreting/reporting physicians. COMPARISON None FINDINGS CT Coronary Calcium Scoring LMA (Left Main Artery) = 0 LAD (Left Anterior Descending) = 287 LCX (Left Coronary Circumflex) = 0 RCA (Right Coronary Artery) = 100 Total Calcium Score = 387 using the AJ-130 method. The observed calcium score of 387 is at 84th percentile for subjects of the same age, sex, and race/ethnicity. The interpretation of the calcium heart score is based on the following continuum*: 0 = no calcified plaque detected (risk of coronary artery disease is very low ??? less than 5%) 1-10 = calcium detected in extremely minimal levels (risk of coronary diseases is still low ??? less than 10%) 11-100 = mild levels of plaque detected with certainty (mild or minimal narrowing of heart arteries is likely) 101-400 = definite,at least moderate levels of plaque detected (relatively high risk of a heart attack within 3-5 years) >401-999 = extensive levels of plaque detected (high risk of heart attack, high levels of vascular disease are present, high likelihood of at least one significant coronary narrowing) *The calcium heart score quantifies the burden of coronary calcification/plaque in the coronary arteries. The calcium heart score is not able to evaluate the presence or burden of non-calcified (i.e. soft) plaque. There is also moderate calcification in the ascending and descending thoracic aorta. Coronary CT Angiography The coronary arterial system is right dominant. Quantitative Stenosis Grading: Left Main (LM): The left main originates normally from the left sinus of Valsalva. The LM bifurcates into the left anterior descending artery and left circumflex artery. The LM is patent with no evidence of atherosclerosis. Left Anterior Descending (LAD) and Diagonal Branches: The LAD gives off 3 diagonal branch(es). There is mixed calcified/non-calcified plaque in the proximal and mid LAD segments, with approximately 70-90% luminal stenosis. There is no evidence of LAD-myocardial bridge. Left Circumflex (LCX) and Obtuse Marginals (OM): The LCX is a small caliber vessel. The LCX gives off 1 Obtuse Marginal (OM) branch(es). There is no obvious plaque noted in the LCX. Right Coronary Artery (RCA): The RCA originates normally from the right sinus of Valsalva. The RCA gives off a posterior descending artery (PDA) and posterolateral (PL) branches. There is mixed calcified/noncalcified plaque in the proximal and mid RCA segments with up to 50 to 70% luminal stenosis. Non-Coronary Cardiac Findings: Analysis of the left ventricular (LV) structure and function was performed after 3-D reconstruction of the LV from axial images, with user-corrected automatic contouring for assessment of LV volumes and user-defined reconstruction from oblique planes for measurement of 3-D cardiac structure and function. -The left ventricle systolic function is normal. -There is no left atrial appendage filling defect. Two right pulmonary veins and two left pulmonary veins drain normally into the left atrium. -No pericardial thickening or calcification. -Central and branch pulmonary arteries in the [id number] are unremarkable. -Thoracic aorta within the visualized thoracic aortic-branches in the [id number] is unremarkable. Extracardiac Structures No significant extra-cardiac findings. Note, however, that this study is focused on the cardiac findings. IMPRESSION -Suboptimal image quality due to significant motion and blurring artifact. This may affect the diagnostic interpretation of the study findings. - Presence of coronary calcification with an Agatston score = 387 using the AJ-130 method. -The observed calcium score of 387 is at 84th percentile for subjects of the same age, sex, and race/ethnicity. - Multivessel atherosclerotic coronary disease, with possible significant flow-limiting atherosclerosis of the LAD and RCA -CAD-RADS 4A. Management recommendations per ACC/AHA guidelines*, as clinically appropriate. -Moderate calcification in the ascending and descending thoracic aorta. *Recommendations: CAD RADS 0: Reassurance. Consider non-atherosclerotic causes of chest pain. CAD RADS 1: Consider non-atherosclerotic causes of chest pain. Consider preventive therapy and risk factor modification. CAD RADS 2: Consider non-atherosclerotic causes of chest pain. Consider preventive therapy and risk factor modification, particularly for patients with nonobstructive plaque in multiple segments. CAD RADS 3: Consider further functional testing. Consider symptom-guided anti-ischemic and preventive pharmacotherapy as well as risk factor modification per published guideline statements. CAD RADS 4A: Consider further functional testing or invasive coronary angiography with revascularization per published guideline statements. Consider symptom-guided anti-ischemic and preventive pharmacotherapy as well as risk factor modification per published guideline statements. CAD RADS 4B: Invasive coronary angiography recommended with revascularization per published guideline statements. Consider symptom-guided anti-ischemic and preventive pharmacotherapy as well as risk factor modification per published guideline statements. CAD RADS 5: Consider invasive angiography and/or viability assessment with revascularization per published guideline statements. Consider symptom-guided anti-ischemic and preventive pharmacotherapy as well as risk factor modification per published guideline statements. CRITICAL RESULT None COMMUNICATION Per this written report The coronary and cardiac findings of this CCTA were reviewed, reported, and signed by Remi Zapata MD (Teaching Dietitian) Conclusion Electronically signed by : Elaina Zapata MD 03/06/2025 14:36:59
[2025-02-28 10:12] VITALS: BMI 32.2
[2025-02-28] MEDS: IVABRADINE HCL 7.5MG TABLET PO (10:39)
[2025-02-28] MEDS: METOPROLOL TARTRATE 50MG TABLET PO (10:39)
[2025-02-28 11:14] LABS: Chloride 108 mmol/L (98-107); Sodium 135 mmol/L (136-145)
[2025-02-28 11:15] LABS: Potassium 4.5 mmoL/L (3.5-5.1)
[2025-02-28 11:18] LABS: Anion Gap 5.5 mEq/L (5-15); Blood Urea Nitrogen 14 mg/dl (7-17); Calcium 8.9 mg/dl (8.4-10.2); Carbon Dioxide 26 mmol/L (22.0-30.0); Creatinine Clearance Estimated 73 mL/min (50-200); Creatinine,Serum 1.00 mg/dl (0.52-1.04); Estimated Glomerular Filt Rate 54 ml/min (>60); GFR (African American) 66 ML/MIN (>60); Glucose 101 mg/dl (74-100)
[2025-02-28 11:45] VITALS: BP 159/55; PULSE 66; RESP 18; O2SAT 97
[2025-02-28] MEDS: NITROGLYCERIN 0.4MG SL TABLET SL (11:45)
[2025-02-28 11:48] VITALS: BP 145/78; PULSE 57; RESP 18; O2SAT 97
[2025-02-28] MEDS: 0.9 % SODIUM CHLORIDE 50 ML VIAL IV (12:07)
[2025-02-28] MEDS: IOPAMIDOL-370 (76%);100ML BOTTLE 85 ML IV (12:07)
[2025-02-28] MEDS: SODIUM CHLORIDE 0.9% 10ML SYR (RAD ONLY) 10 ML IV (12:07)
== END 2025-02-28 12:30 | disposition home or self-care (01) ==
LOC: RAD 09:55
PROVIDERS: PCP Internal Medicine; Visit Provider Nurse Practitioner Family
DX: I20.89 Other forms of angina pectoris (principal); R07.9 Chest pain, unspecified
CPT/HCPCS: 36415; 75574; 80048; Q9967

== ENCOUNTER 2025-03-14 08:31 | Day surgery (SDC) | payer MEDICARE, OTHER, SELFPAY ==
[2025-03-14] VITALS (8 sets, daily range): BP systolic 130–160; BP diastolic 67–85; PULSE 50–69; RESP 16–18; O2SAT 95–99; BMI 32.1
--- NOTE | 2025-03-14 07:14 | IR_ITS ---
APPROVED REPORT Patient Location: [facility] Consultant: Norman Montalvo, RT (R) PROCEDURES Left heart catheterization Left ventriculogram Selective coronary angiogram INDICATION Abnormal Myoview, Angina pectoris Informed consent was obtained prior to the procedure. COMPLICATIONS NONE Estimated Blood Loss: LESS THAN 10 ML TECHNIQUE One percent lidocaine used to anesthetize the right anterior aspect of the wrist. The right radial artery was accessed via the Seldinger technique. A 6 Irish sheath was placed in the right radial artery. 2.5 mg of Verapamil, 800 mcg of nitroglycerin, 1mg Lidocaine and 5000 U Heparin were given through the arterial sheath. The JL3 catheter was also used to perform left heart catheterization, left ventriculogram and selective coronary angiogram. At the end of the procedure the sheath was removed good hemostasis was achieved using Traclet band, patient was transferred to the postop holding area in stable condition. ANGIOGRAPHIC RESULTS The left main artery Normal The left anterior descending artery Has calcified proximal and mid vessel 30% stenosis The circumflex artery Is codominant tortuous with 10 to 20% luminal regularities The right coronary artery Is codominant and has proximal 30 to 40% calcified stenosis with mid vessel 30% stenoses The [place] ventriculogram reveals Hyperdynamic 75% The left ventricular end-diastolic pressure 15 mmHg IMPRESSION Nonflow limiting mild to moderate calcific disease Hyperdynamic ventricle Normal LVEDP PLAN 1. Medical management with risk factor modification Electronically signed by : Asael Chambers MD 03/14/2025 16:54:28
[2025-03-14 09:02] LABS: Hematocrit 45.3 % (37.0-47.0); Hemoglobin 14.9 g/dL (12.2-16.2); Immature Granulocytes % 0.3 %; Mean Corpuscular HGB Conc 32.9 g/dL (31.8-35.4); Mean Corpuscular Hemoglobin 31.4 pg (27.0-31.2); Mean Corpuscular Volume 95.6 fl (81-99); Nucleated Red Blood Cells % 0 %; Platelet Count 223 K/mm3 (142-424); Red Blood Count 4.74 M/mm3 (4.20-5.40); Red Cell Distribution Width-SD 44.2 fL; White Blood Count 10.7 K/mm3 (4.8-10.8)
[2025-03-14 09:20] LABS: Anion Gap 10.1 mEq/L (5-15); Blood Urea Nitrogen 21 mg/dl (7-17); Calcium 8.9 mg/dl (8.4-10.2); Carbon Dioxide 28 mmol/L (22.0-30.0); Chloride 104 mmol/L (98-107); Creatinine Clearance Estimated 66 mL/min (50-200); Creatinine,Serum 1.10 mg/dl (0.52-1.04); Estimated Glomerular Filt Rate 49 ml/min (>60); GFR (African American) 59 ML/MIN (>60); Glucose 98 mg/dl (74-100); Potassium 4.1 mmoL/L (3.5-5.1); Sodium 138 mmol/L (136-145)
[2025-03-14] MEDS: HEPARIN 1,000 UNITS/500ML NS (CATH LAB) 3000 UNIT IV (10:07)
[2025-03-14] MEDS: NITROGLYCERIN 800MCG/8ML SYR (CATH LAB) 800 MCG IA (10:07)
[2025-03-14] MEDS: LIDOCAINE 1% 10ML MDV 10 ML IJ (10:07)
[2025-03-14] MEDS: HEPARIN 1,000 UNITS/ML 10ML VIAL (CATH LAB) 5000 UNIT IV (10:08)
[2025-03-14] MEDS: VERAPAMIL 2.5MG/ML 2ML VIAL 2.5 MG IV (10:08)
[2025-03-14] MEDS: 0.9 % SODIUM CHLORIDE 500 ML 25 ML IV (10:08)
[2025-03-14] MEDS: FENTANYL 100MCG/2ML VIAL 50 MCG IV (10:13)
[2025-03-14] MEDS: MIDAZOLAM HCL 1MG/ML 5ML VIAL 1 MG IV (10:13)
--- NOTE | 2025-03-14 11:01 | SUR.PHASEII ---
lunch tray ordered for patient. family at bedside.
[2025-03-14] MEDS: IOPAMIDOL-370 (76%);100ML BOTTLE 50 ML IV (11:49)
== END 2025-03-14 12:31 | disposition home or self-care (01) ==
LOC: CATHLAB 08:32
PROVIDERS: PCP Internal Medicine; Visit Provider Internal Medicine
PROC: 4A023N7 Measurement of Cardiac Sampling and Pressure, Left Heart, Percutaneous Approach (ICD-10-PCS; CPT 93452; principal; 2025-03-14 10:00)
DX: I25.118 Atherosclerotic heart disease of native coronary artery with other forms of angina pectoris (principal); R93.1 Abnormal findings on diagnostic imaging of heart and coronary circulation; R94.39 Abnormal result of other cardiovascular function study; I65.23 Occlusion and stenosis of bilateral carotid arteries; I10 Essential (primary) hypertension; E78.49 Other hyperlipidemia; J44.9 Chronic obstructive pulmonary disease, unspecified; G24.01 Drug induced subacute dyskinesia; F17.210 Nicotine dependence, cigarettes, uncomplicated; Z79.82 Long term (current) use of aspirin; Z79.899 Other long term (current) drug therapy; Z88.0 Allergy status to penicillin; Z82.49 Family history of ischemic heart disease and other diseases of the circulatory system
CPT/HCPCS: 80048; 85025; 93458; 99152; C1725; C1769; J1200; J1644; J2003; J3010; J7040; Q9967